=== PATIENT | female | born 1965 | race Caucasian/White ===

== ENCOUNTER 2019-06-09 14:31 | Inpatient (IN) | payer MEDICARE, MEDICAID, SELFPAY ==
--- NOTE | ~2019-06-09 | CT_ITS ---
EXAMINATION: CT abdomen pelvis w con DATE: 06/09/2019 17:11 INDICATION: Lower abdominal pain TECHNIQUE: Computed tomography (CT) of the abdomen and pelvis was performed with 100 mL Omnipaque-350 intravenous contrast. Automated exposure control and iterative reconstruction technique were employe d. The dose-length product was 539.12 mGy-cm. COMPARISON: 07/27/2018 FINDINGS: Lung bases are clear. Heart size is normal. No pericardial or pleural effusion. Liver, gallbladder, s pleen, pancreas and bilateral adrenal glands are normal. Mild right and moderate left hydroureteronep hrosis with delayed left nephrogram. No evident obstructing stones at the transition points along the distal bilateral ureters which currently region of scarring in the pelvis likely related to prior hy sterectomy and reported radiation treatment. 5.2 x 1.8 x 5.1 cm gas and fluid collection within the v aginal vault and cervical cuff. There is subtle region of decreased attenuation along the anterior ma rgin of the vaginal cuff abutting the bladder and could not exclude a vaginovesical fistula. There is mild stranding in the pelvis but no intraperitoneal fluid collections. There are few scattered colon ic diverticula without adjacent inflammatory change to suggest diverticulitis. Small bowel and append ix are normal. There are a few phleboliths in the pelvis. Couple small heterotopic ossicles in the in traperitoneal fat near the dome of the bladder. No pathologically enlarged abdominal or pelvic lympha denopathy. Severe lumbar facet osteoarthritis. Moderate thoracic spondylosis. IMPRESSION: 1. 5.2 x 1.8 x 5.1 cm gas and fluid collection within the vaginal vault and cervical cuff post prior hysterectomy and reported radiation treatment. Small region of decreased attenuation along the anteri or wall of the cervical cuff which raises some concern for vesicovaginal fistula although no discrete defect is identified in the adjacent bladder wall and there is no gas within the bladder to more spe cifically suggest this. Correlate with urinalysis. 2. Bilateral hydronephrosis, moderate with delayed nephrogram on the left and mild on the right with transition points along the ureters in the pelvis which may be related to postoperative/radiation lorin atment strictures or potentially recurrent malignancy given the reported history of prior endometrial cancer. No evident obstructing urolithiasis. Recommend urologic consultation. Reviewed, dictated and finalized at location A. [employer] IMPRESSION: 1. 5.2 x 1.8 x 5.1 cm gas and fluid collection within the vaginal vault and cer vical cuff post prior hysterectomy and reported radiation treatment. Small keon on of decreased attenuation along the anterior wall of the cervical cuff which raises some concern for vesicovaginal fistula although no discrete defect is id entified in the adjacent bladder wall and there is no gas within the bladder to more specifically suggest this. Correlate with urinalysis. 2. Bilateral hydronephrosis, moderate with delayed nephrogram on the left and m ild on the right with transition points along the ureters in the pelvis which m ay be related to postoperative/radiation treatment strictures or potentially re current malignancy given the reported history of prior endometrial cancer. No e vident obstructing urolithiasis. Recommend urologic consultation.
--- NOTE | ~2019-06-09 | XR_ITS ---
EXAMINATION: XR fluoroscopy no charge EXAM DATE: 06/11/2019 13:15 INDICATION: Unsuccessful urethral access. TECHNIQUE: Fluoroscopy used during XR fluoroscopy no charge performed by Dr. Zoltan Borrego MD. The DAP for this procedure was 0.15 mGym2. FINDINGS: Director Of Land Acquisition image of pelvis is unremarkable. Correlate with procedure note. IMPRESSION: Fluoroscopy used during XR fluoroscopy no charge. Reviewed, dictated and finalized at location A. [employer] EXP[employer]
--- NOTE | ~2019-06-09 | MR_ITS ---
EXAMINATION: MR pelvis wo con DATE: 06/10/2019 10:46 INDICATION: Vesicovaginal fistula. Endometrial cancer status post radiation therapy. Supracervical hy sterectomy prior to the cancer diagnosis. TECHNIQUE: Magnetic resonance imaging (MRI) of the pelvis was performed without intravenous contrast. Sequences included coronal and axial T2-weighted FS FSE, axial T1-weighted FS FSE, axial LAVA, coron al FS FIESTA, coronal LAVA-flex, axial T2-weighted FSE, axial dual-echo T1-weighted FSPGR, axial FS F IESTA, axial DWI, and small [id number] sagittal, coronal, and axial T2-weighted FSE. COMPARISON: CT abdomen and pelvis 06/09/2019,07/27/18 FINDINGS: There is bilateral hydronephrosis and hydroureter. The bladder is distended. There are no dilated loo ps of bowel. There is wall thickening of the rectum. There is thickening of the cárdenas of the cervix a nd vagina. There is fluid and gas in the vagina. There is fat stranding around the vagina and rectum. There are no pathologically enlarged lymph nodes. There is no free intraperitoneal fluid. IMPRESSION: 1. Wall thickening of the cervix and vagina and rectum with surrounding fat stranding, consistent wit h changes of radiation therapy. Residual or recurrent endometrial adenocarcinoma cannot be excluded. 2. Bilateral hydronephrosis and hydroureter, new from 07/27/18, likely secondary to distal ureteral st rictures from radiation therapy. 3. No vesicovaginal fistula. Reviewed, dictated and finalized at location A. GENCY ROOM TECH IMPRESSION: 1. Wall thickening of the cervix and vagina and rectum with surrounding fat str anding, consistent with changes of radiation therapy. Residual or recurrent end ometrial adenocarcinoma cannot be excluded. 2. Bilateral hydronephrosis and hydroureter, new from 07/27/18, likely secondary to distal ureteral strictures from radiation therapy. 3. No vesicovaginal fistula.
[2019-06-09 14:39] VITALS: BP 161/92; PULSE 113; PULSE 121; TEMP 37.1; O2SAT 98
--- NOTE | 2019-06-09 14:46 | ED.GENADULT ---
HPI - General Adult General Chief complaint: Unspecified <Johanny Saenz MD - Last Filed: 06/10/19 09:05> Stated complaint: high blood sugar/abd pain <Johanny Saenz MD - Last Filed: 06/10/19 09:05> Time Seen by Provider: 06/09/19 14:43 <Johanny Saenz MD - Last Filed: 06/10/19 09:05> Source: patient <Johanny Saenz MD - Last Filed: 06/10/19 09:05> Mode of arrival: EMS <Johanny Saenz MD - Last Filed: 06/10/19 09:05> Limitations: no limitations <Johanny Saenz MD - Last Filed: 06/10/19 09:05> History of Present Illness HPI narrative: A 53 y/o female pt presents to the ED, via EMS, from Dr. Moya's office, with c/o chronic,unmanageable, lower, ABD pain x 1 year, that is worsening. Pt states that she was dx with endometrial CA in 2014, that was treated with radiation, and now has chronic pain in her lower ABD. Pt notes that she has lost control of her bladder and bowels and has BLE edema. She reports having nausea but denies vomiting and diarrhea. Pt has a PSHx of a hysterectomy. <Johanny Saenz MD - Last Filed: 06/10/19 09:05> MD complaint: ABD Pain <Johanny Saenz MD - Last Filed: 06/10/19 09:05> Onset (ago): year(s) (1) <Johanny Saenz MD - Last Filed: 06/10/19 09:05> Location: abdomen (lower) <Johanny Saenz MD - Last Filed: 06/10/19 09:05> Relieving factors: none <Johanny Saenz MD - Last Filed: 06/10/19 09:05> Associated symptoms: other (Nausea, incontinence of bladder and bowel) <Johanny Saenz MD - Last Filed: 06/10/19 09:05> Related Data Home medications: Home Medications Medication Instructions Recorded Confirmed allopurinol 300 mg PO DAILY 06/09/19 06/10/19 levothyroxine 175 mcg PO DAILY 06/09/19 06/10/19 metformin 500 mg PO DAILY 06/09/19 06/10/19 metoprolol succinate 1 mg PO DAILY 06/09/19 06/10/19 omeprazole 40 mg PO DAILY 06/09/19 06/10/19 triamterene-hydrochlorothiazid 1 tablet PO DAILY 06/09/19 06/10/19 besifloxacin [Besivance] 1 drp LEFTEYE BID 06/10/19 06/10/19 bromfenac [Prolensa] 1 drp LEFTEYE DAILY 06/10/19 06/10/19 loteprednol etabonate [Lotemax SM] 1 drp LEFTEYE TID 06/10/19 06/10/19 prednisolone acetate 1 drp LEFTEYE TID 06/10/19 06/10/19 simvastatin 20 mg BYMOUTH DAILY 06/10/19 06/10/19 <Johanny Saenz MD - Last Filed: 06/10/19 09:05> Allergies/adverse reactions: Allergies Allergy/AdvReac Type Severity Reaction Status Date / Time No Known Allergies Allergy Verified 06/09/19 17:46 <Johanny Saenz MD - Last Filed: 06/10/19 09:05> Review of Systems Review of Systems: All systems reviewed & are unremarkable except as noted in HPI and below <Johanny Saenz MD - Last Filed: 06/10/19 09:05> Gastrointestinal: Gastrointestinal: Reports abdominal pain (lower), Reports fecal incontinence, Denies diarrhea, Reports nausea and Denies vomiting <Johanny Saenz MD - Last Filed: 06/10/19 09:05> Genitourinary: Genitourinary: Reports urinary incontinence <Johanny Saenz MD - Last Filed: 06/10/19 09:05> Musculoskeletal: Musculoskeletal: Reports other (BLE edema) <Johanny Saenz MD - Last Filed: 06/10/19 09:05> [facility] Past Medical History Medical History: Medical History (Updated 06/09/19 @ 19:19 by Shahram Hussein MD) Cerebral palsy Diabetes mellitus Endometrial cancer Hyperlipidemia Hypertension <Johnany Saenz MD - Last Filed: 06/10/19 09:05> Surgical History Surgical History: Surgical History (Updated 06/09/19 @ 15:18 by FRANCINE Hoffmann) History of hysterectomy <Johanny Saenz MD - Last Filed: 06/10/19 09:05> Social History Social History: Social History (Updated 06/09/19 @ 15:22 by FRANCINE Hoffmann) Smoking status: Never smoker Alcohol intake: never Substance use: never Living arrangements: with family Gender identity (if verbalized by the
[2019-06-09 15:14] LABS: Alveolar/Arterial O2 Gradient 38.6 mmHg; Base Excess ABG -0.8 mEq/l (+/-2.0); Carboxyhemoglobin 0.3 % THb (0-2.0); Fractional Inspired Oxygen 21 %; HCO3 ABG 19.3 mEq/l (22.0-26.0); Methemoglobin ABG 0.2 %THb (0-1.5); Oxygen Content ABG 16.9 %vol (16.0-22.0); Oxygen Saturation ABG 97.8 % (95.0-100.0); Oxyhemoglobin 96.3 % THb (90.0-100.0); PO2 ABG 85.7 mmHg (80.0-100.0); PO2 FiO2 Ratio Arterial Blood 4.08 %; Reduced Hemoglobin 3.2 %THb (0-5.0); Total Hemoglobin 12.4 g/dL (12.0-18.0); pH ABG 7.578 (7.350-7.450)
[2019-06-09 15:15] LABS: Device ROOM AIR; PCO2 ABG 21.2 mmHg (35.0-45.0); Site Drawn RIGHT BRACHIAL
[2019-06-09 16:14] LABS: Basophils Absolute Auto 0.1 K/mm3 (0.0-0.1); Basophils Percent Auto 0.9 % (0.2-1.2); Eosinophils Percent Auto 0.3 % (0-4.4); Hemoglobin 11.6 g/dL (12.0-15.0); Immature Granulocyte Absolute 0.06 K/mm3 (0.00-0.031); Immature Granulocyte Percent A 0.9 % (0-0.5); Lymphocytes Absolute Auto 0.69 K/mm3 (0.9-3.2); Lymphocytes Percent Auto 10.1 % (18.3-44.2); Mean Corpuscular HGB Conc 34.1 g/dl (32-36); Mean Corpuscular Hemoglobin 27.4 pg (26-34); Mean Corpuscular Volume 80.2 fl (80-100); Mean Platelet Volume 10.4 fl (7.4-10.4); Monocytes Absolute Auto 0.4 K/mm3 (0.1-0.6); Neutrophils Absolute Auto 5.6 K/mm3 (1.3-6.7); Neutrophils Percent Auto 81.8 % (45.5-73.1); Platelet Count Result 331 k/mm3 (150-375); Red Blood Count 4.24 M/mm3 (4.2-5.4); Red Cell Distribution Width 14.2 % (11.5-14.5); White Blood Count 6.9 K/mm3 (4.5-10.0)
[2019-06-09 16:26] LABS: Lactic Acid Reflex 1.4 mmol/L (0.7-2.1); Phosphorus 2.5 mg/dL (2.5-4.5)
[2019-06-09 16:27] LABS: INR 1.1; Prothrombin Time 13.4 Seconds (11.1-14.7)
[2019-06-09 16:28] LABS: Partial Thromboplastin Time 22.6 SECONDS (22.3-36.8)
[2019-06-09 16:32] LABS: Alanine Aminotransferase 14 U/L (4-35); Albumin Level 3.7 g/dL (3.5-5.1); Alkaline Phosphatase 149 U/L (38-126); Aspartate Amino Transferase 17 U/L (14-36); Bilirubin,Total 0.7 mg/dL (0.2-1.3); Blood Urea Nitrogen 17 mg/dL (7-17); Calcium 9.4 mg/dL (8.4-10.2); Carbon Dioxide 21 mmol/L (22-30); Chloride 90 mmol/L (98-107); Estimated CRCL calculation 36 ml/min; Estimated Glomerular Filt Rate 33; Glucose 620 mg/dL (65-105); Lipase 100 U/L (23-300); Magnesium 1.7 mg/dL (1.6-2.3); Potassium 3.1 mmol/L (3.4-5.0); Sodium 129 mmol/L (137-145)
[2019-06-09] MEDS: SODIUM CHLORIDE 0.9% IV 1,000 ML 999 ML IV CONT (17:23)
[2019-06-09 17:24] VITALS: BP 166/102; PULSE 103; O2SAT 100
--- NOTE | 2019-06-09 17:41 | PC.NURSE ---
Tried to cath pt but Burciaga would not advance, had another RN try and she had same results. Spoke with Dr. Saenz and she wanted a 8 romansh cath tried on pt. Was able to get a small amount of bloody urine. but lab rejected
[2019-06-09 18:02] LABS: Glucose Point of Care > 500 (65-105)
[2019-06-09 18:16] LABS: Free T4 Free Thyroxine Reflex 1.84 ng/dL (0.78-2.19)
[2019-06-09 18:36] VITALS: BP 132/45; PULSE 78; RESP 16; O2SAT 100
[2019-06-09] MEDS: ONDANSETRON INJ 4 MG/2 ML VIAL IV PUSH (18:43)
[2019-06-09] MEDS: MORPHINE SULFATE 4 MG/ML INJ IV PUSH (18:43)
[2019-06-09 18:55] LABS: Total Triiodothyronine (T3) 1.35 NG/ML (0.97-1.69)
[2019-06-09 20:21] VITALS: BP 143/71; PULSE 97; RESP 20; TEMP 36.7; O2SAT 100
[2019-06-09 20:40] VITALS: BP 162/102; PULSE 97; O2SAT 98
[2019-06-09] MEDS: LACTATED RINGERS 1,000 ML 125 ML IV CONT (20:54)
[2019-06-09 22:07] LABS: Glucose Point of Care 490 (65-105)
[2019-06-09] MEDS: KETOROLAC 15 MG/ML VIAL (*BKC) IV PUSH (23:00)
[2019-06-09] MEDS: INSULIN ASPART (*BKC) 100 UNITS/ML 6 UNITS SUB-Q (23:01)
[2019-06-10] VITALS: BP 127/77; PULSE 87; RESP 16; TEMP 36.2; O2SAT 98
[2019-06-10 04:00] VITALS: BP 141/72; PULSE 85; RESP 16; TEMP 36.3; O2SAT 100
[2019-06-10] MEDS: LACTATED RINGERS 1,000 ML 125 ML IV CONT (04:53)
[2019-06-10 05:29] LABS: Glucose Point of Care 342 (65-105)
[2019-06-10 06:13] LABS: Basophils Absolute Auto 0.1 K/mm3 (0.0-0.1); Eosinophils Absolute Auto 0.2 K/mm3 (0-0.3); Eosinophils Percent Auto 2.7 % (0-4.4); Hematocrit 29.2 % (37.0-47.0); Hemoglobin 9.8 g/dL (12.0-15.0); Immature Granulocyte Absolute 0.05 K/mm3 (0.00-0.031); Immature Granulocyte Percent A 0.8 % (0-0.5); Lymphocytes Absolute Auto 0.98 K/mm3 (0.9-3.2); Lymphocytes Percent Auto 16.4 % (18.3-44.2); Mean Corpuscular HGB Conc 33.6 g/dl (32-36); Mean Corpuscular Hemoglobin 27.6 pg (26-34); Mean Corpuscular Volume 82.3 fl (80-100); Mean Platelet Volume 10.5 fl (7.4-10.4); Monocytes Absolute Auto 0.5 K/mm3 (0.1-0.6); Monocytes Percent Auto 8.2 % (2.6-8.5); Neutrophils Absolute Auto 4.2 K/mm3 (1.3-6.7); Neutrophils Percent Auto 70.9 % (45.5-73.1); Platelet Count Result 293 k/mm3 (150-375); Red Blood Count 3.55 M/mm3 (4.2-5.4); Red Cell Distribution Width 14.6 % (11.5-14.5)
[2019-06-10 06:23] LABS: Alanine Aminotransferase 11 U/L (4-35); Alkaline Phosphatase 110 U/L (38-126); Aspartate Amino Transferase 15 U/L (14-36); Bilirubin,Total 0.4 mg/dL (0.2-1.3); Blood Urea Nitrogen 15 mg/dL (7-17); Calcium 8.4 mg/dL (8.4-10.2); Carbon Dioxide 26 mmol/L (22-30); Chloride 95 mmol/L (98-107); Estimated CRCL calculation 45 ml/min; Estimated Glomerular Filt Rate 33; Glucose 334 mg/dL (65-105); Potassium 2.9 mmol/L (3.4-5.0); Sodium 131 mmol/L (137-145)
[2019-06-10 08:13] LABS: Glucose Point of Care 365 (65-105)
[2019-06-10] MEDS: POTASSIUM CHLORIDE 20 MEQ PACKET (FOR LIQUID) 40 MEQ PO ×2 (08:43→17:15)
[2019-06-10 08:44] VITALS: RESP 20; O2SAT 100
[2019-06-10] MEDS: INSULIN ASPART (*BKC) 100 UNITS/ML SUB-Q ×2 (08:44→17:17)
[2019-06-10 12:12] LABS: Glucose Point of Care 407 (65-105)
--- NOTE | 2019-06-10 12:18 | PM.IMHP ---
H&P: HPI History of Present Illness Chief complaint: CHRONIC LOWER ABDOMINAL PAIN,VESICOVAGINAL FISTULA Narrative: Stephanie De La Garza is a 53 year old female With a history of endometrial cancer who was admitted to the emergency department with 1 year of lower abdominal pain. she had lost control of her bowels and bladder. she is status post supracervical hysterectomy. She received radiation therapy in the past. There is a question of a vesicle vaginal fistula on admission. MRI today however shows no vesicle vaginal fistula. On MRI her ureters are distended secondary to suspected scarring from previous radiation. Review of Systems Review of Systems: All systems reviewed & are unremarkable except as noted in HPI and below PMFSH Past Medical History Medical History Cerebral palsy Diabetes mellitus Endometrial cancer Hyperlipidemia Hypertension Surgical History Surgical History History of hysterectomy Social History Social History Smoking status: Never smoker Alcohol intake: never Substance use: never Living arrangements: with family Gender identity (if verbalized by the patient): Female Spiritual care concerns: No Agree to blood products: No Meds Home Medications and Allergies Home Medications Medication Instructions Recorded Confirmed Type allopurinol 300 mg PO DAILY 06/09/19 06/10/19 History levothyroxine 175 mcg PO DAILY 06/09/19 06/10/19 History metformin 500 mg PO DAILY 06/09/19 06/10/19 History metoprolol succinate 1 mg PO DAILY 06/09/19 06/10/19 History omeprazole 40 mg PO DAILY 06/09/19 06/10/19 History triamterene-hydrochlorothiazid 1 tablet PO DAILY 06/09/19 06/10/19 History besifloxacin [Besivance] 1 drp LEFTEYE BID 06/10/19 06/10/19 History bromfenac [Prolensa] 1 drp LEFTEYE DAILY 06/10/19 06/10/19 History loteprednol etabonate [Lotemax SM] 1 drp LEFTEYE TID 06/10/19 06/10/19 History prednisolone acetate 1 drp LEFTEYE TID 06/10/19 06/10/19 History simvastatin 20 mg BYMOUTH DAILY 06/10/19 06/10/19 History Allergies Allergy/AdvReac Type Severity Reaction Status Date / Time No Known Allergies Allergy Verified 06/09/19 17:46 Vital Signs Vital Signs - 24 hr 06/09/19 14:39 06/09/19 17:24 06/09/19 18:36 Temperature 98.8 F Pulse Rate 113 H 103 H 78 Respiratory Rate 16 Blood Pressure 161/92 H 166/102 H 132/45 L Pulse Oximetry 98 100 100 06/09/19 20:21 06/09/19 20:40 06/10/19 00:00 Temperature 98.1 F 97.2 F L Pulse Rate 97 97 87 Respiratory Rate 20 16 Blood Pressure 143/71 H 162/102 H 127/77 Pulse Oximetry 100 98 98 06/10/19 04:00 Temperature 97.4 F L Pulse Rate 85 Respiratory Rate 16 Blood Pressure 141/72 H Pulse Oximetry 100 Exam Const: General: no acute distress Eyes: General: appearance normal, both eyes and all related structures Neck: Neck: supple and no JVD Thyroid: thyroid normal Resp: Effort & Inspection: normal respiratory effort Auscultation: clear to auscultation bilaterally Cardio: Rate: regular rate Rhythm: regular rhythm GI: Inspection: non-distended GI Palp: Yes Soft to palpation, No Tenderness to palpation present (GI) and No Guarding due to palpation present (GI) Auscultation: normal bowel sounds Skin: General skin exam: no rashes or lesions noted Extrem: General: normal to inspection and no edema Psych: Mental Status: mental status grossly normal Affect: normal affect H&P: Results Labs Labs: Short CBC 06/09/19 06/10/19 Range/Units 16:06 04:53 WBC 6.9 6.0 (4.5-10.0) K/mm3 Hgb 11.6 L 9.8 L (12.0-15.0) g/dL Hct 34.0 L 29.2 L (37.0-47.0) % Plt Count 331 293 (150-375) k/mm3 [facility] 06/09/19 06/10/19 16:06 04:53 Sodium 129 L 131 L Potassium 3.1 L 2.9 L Chloride 90 L 95 L Carbon Dioxide 21 L 26 BUN 17 15 Creatinine 1
[2019-06-10] MEDS: LIDOCAINE HCL 2% GEL UROJET 10 ML PKG MUCOUS MEM (13:14)
[2019-06-10 13:18] LABS: Glucose Point of Care 429 (65-105)
[2019-06-10] MEDS: INSULIN ASPART (*BKC) 100 UNITS/ML 8 UNITS SUB-Q (13:18)
--- NOTE | 2019-06-10 13:39 | PC.NURSE ---
1330 Report called to Carin CASIANO in Preop.
--- NOTE | 2019-06-10 13:40 | PC.NURSE ---
1800 To OR via stretcher.
[2019-06-10 13:55] VITALS: BP 149/56; PULSE 104; RESP 20; TEMP 36.3; O2SAT 100
[2019-06-10] MEDS: LACTATED RINGERS 1,000 ML 30 ML IV CONT (14:00)
--- NOTE | 2019-06-10 14:19 | WPDANESEPPF ---
Anes - Initial Pre Proc Eval Procedure: Operation Date: 06/10/19 16:00 Proposed Procedures p CYSTOSCOPY,BILATERAL RETROGRADE PYELOGRAMS,POSSIBLE BILATERAL STENT PLACEMENT,JIMENEZ CATHETER INSERTION - Zoltan Borrego MD Date/Time: 06/10/19 14:19 Pre Op Diagnosis: CHRONIC LOWER ABDOMINAL PAIN,VESICOVAGINAL FISTULA Patient Data Age: 53 Gender: F Height: 24.59 m Weight: 79.9 kg Last Vital Signs Temp 36.3 C L 06/10/19 13:55 Pulse 104 H 06/10/19 13:55 Resp 20 06/10/19 13:55 BP 149/56 H 06/10/19 13:55 Pulse Ox 100 06/10/19 13:55 Allergies Allergy/AdvReac Type Severity Reaction Status Date / Time No Known Allergies Allergy Verified 06/09/19 17:46 Home Medications Medication Instructions Recorded Confirmed Type allopurinol 300 mg PO DAILY 06/09/19 06/10/19 History levothyroxine 175 mcg PO DAILY 06/09/19 06/10/19 History metformin 500 mg PO DAILY 06/09/19 06/10/19 History metoprolol succinate 1 mg PO DAILY 06/09/19 06/10/19 History omeprazole 40 mg PO DAILY 06/09/19 06/10/19 History triamterene-hydrochlorothiazid 1 tablet PO DAILY 06/09/19 06/10/19 History besifloxacin [Besivance] 1 drp LEFTEYE BID 06/10/19 06/10/19 History bromfenac [Prolensa] 1 drp LEFTEYE DAILY 06/10/19 06/10/19 History loteprednol etabonate [Lotemax SM] 1 drp LEFTEYE TID 06/10/19 06/10/19 History prednisolone acetate 1 drp LEFTEYE TID 06/10/19 06/10/19 History simvastatin 20 mg BYMOUTH DAILY 06/10/19 06/10/19 History Laboratory Tests 06/09/19 06/09/19 06/09/19 15:07 15:22 15:55 WBC RBC Hgb Hct MCV MCH MCHC RDW Plt Count MPV Immature Gran % (Auto) Neut % (Auto) Lymph % (Auto) [place] % (Auto) Eos % (Auto) Baso % (Auto) Lymph # (Auto) [place] # (Auto) Eos # (Auto) Baso # (Auto) Abs Immat Gran (auto) Absolute Neuts (auto) Absolute Nucleated RBC Nucleated RBC % PT INR APTT Puncture Site Right brachial ABG pH 7.578 H* (7.350-7.450) ABG pCO2 21.2 mmHg L* mmHg (35.0-45.0) ABG pO2 85.7 mmHg mmHg (80.0-100.0) ABG PO2/FiO2 Ratio 4.08 % % ABG HCO3 19.3 mEq/l L mEq/l (22.0-26.0) ABG O2 Saturation 97.8 % % (95.0-100.0) ABG O2 Content 16.9 %vol %vol (16.0-22.0) ABG Base Excess -0.8 mEq/l mEq/l (+/-2.0) A-a Gradient 38.6 mmHg mmHg Oxyhemoglobin 96.3 % THb % THb (90.0-100.0) Carboxyhemoglobin 0.3 % THb % THb (0-2.0) Methemoglobin 0.2 %THb %THb (0-1.5) Reduced Hemoglobin 3.2 %THb %THb (0-5.0) Total Hemoglobin 12.4 g/dL g/dL (12.0-18.0) O2 Delivery Device Room air O2 Liters/Min Not Reportable FiO2 21 % % Sodium Potassium Chloride Carbon Dioxide BUN Creatinine Estim Creat Clear Calc Estimated GFR Glucose POC Capillary Glucose > 500 mg/dl mg/dl (65-105) Lactic Acid Calcium Phosphorus Magnesium Total Bilirubin AST ALT Alkaline Phosphatase Total Protein Albumin Lipase TSH (Reflex) Free T4 Total T3 Urine Color Pending Urine Appearance Pending Urine pH Pending Ur Specific Benedict Pending Urine Protein Pending Urine Glucose (UA) Pending Urine Ketones Pending Ur Blood (Man) Pending Urine Nitrate Pending Urin
--- NOTE | 2019-06-10 14:24 | WPDURCON ---
Assessment and Plan Assessment and plan (1) Hydronephrosis: Code(s): N13.30 - Unspecified hydronephrosis Status: Acute Assessment and Plan: Etiology of hydronephrosis on clear as to whether this is due to urinary retention versus bilateral ureteral stricture disease from her prior pelvic radiation we will proceed with cystoscopy bilateral retrograde pyelograms possibly bilateral stents if needed (2) Urinary retention with incomplete bladder emptying: Code(s): R33.9 - Retention of urine, unspecified Status: Acute Assessment and Plan: Random residual is 470 cc. On clears to what her baseline is. She states that she is incontinent of urine but is unclear whether she makes an effort to void in the bathroom on her own. There was a question of whether she had a vesicle vaginal fistula. MRI stated that she did not. Will evaluate with cystoscopy in addition (3) Incontinence: Code(s): R32 - Unspecified urinary incontinence Status: Acute Assessment and Plan: Again etiology is unclear whether this is overflow or basically inability to make it to the restroom in time. We will also see if this is secondary to a vesicovaginal fistula Urology Consult Note HPI Date Seen: 06/10/19 Requesting Physician: Philip Bustillos MD Primary Care Provider: Iza Moya MD Consult Narrative Narrative: Stephanie De La Garza is a 53 year old female with cerebral palsy and a complicated history of endometrial carcinoma with a supracervical hysterectomy. She underwent adjuvant radiation therapy. She has had a long history of abdominal vaginal discomfort but had never really pursue treatment. She has also had urinary incontinence and there was some question of a vesicle vaginal fistula. She underwent both a CT scan and MRI which ruled out a fistula. She does have some sort of a fluid collection in her pelvic area. Of note is however that she had bilateral hydronephrosis as well as a mildly distended bladder. Postvoid residual or random residual was [address] attempted to [address] a Burciaga at the bedside but she could not tolerate that placement. She will be taken to the operative suite for cystoscopy bilateral retrogrades bilateral stents possibly with Burciaga placement the CT scan was not clear whether it was hydronephrosis secondary to retention versus bilateral ureteral stricture disease PMFSH Past Medical History Medical History Cerebral palsy Diabetes mellitus Endometrial cancer Hyperlipidemia Hypertension Surgical History Surgical History History of hysterectomy Social History Social History Smoking status: Never smoker Alcohol intake: never Substance use: never Living arrangements: with family Gender identity (if verbalized by the patient): Female Spiritual care concerns: No Agree to blood products: No Meds Home Medications and Allergies Home Medications Medication Instructions Recorded Confirmed Type allopurinol 300 mg PO DAILY 06/09/19 06/10/19 History levothyroxine 175 mcg PO DAILY 06/09/19 06/10/19 History metformin 500 mg PO DAILY 06/09/19 06/10/19 History metoprolol succinate 1 mg PO DAILY 06/09/19 06/10/19 History omeprazole 40 mg PO DAILY 06/09/19 06/10/19 History triamterene-hydrochlorothiazid 1 tablet PO DAILY 06/09/19 06/10/19 History besifloxacin [Besivance] 1 drp LEFTEYE BID 06/10/19 06/10/19 History bromfenac [Prolensa] 1 drp LEFTEYE DAILY 06/10/19 06/10/19 History loteprednol etabonate [Lotemax SM] 1 drp LEFTEYE TID 06/10/19 06/10/19 History prednisolone acetate 1 drp LEFTEYE TID 06/10/19 06/10/19 History simvastatin 20 mg BYMOUTH DAILY 06/10/19 06/10/19 History Allergies Allergy/AdvReac Type Severity Reaction Status Date / Time No Known Allergies Allergy Verified
[2019-06-10 16:00] VITALS: BP 137/72; PULSE 96; RESP 16; TEMP 36.2; O2SAT 100
[2019-06-10 16:44] LABS: Glucose Point of Care 322 (65-105)
--- NOTE | 2019-06-10 16:59 | PC.NURSE ---
1600 Returned from OR via stretcher. Unable to do surgery based on last intake at 1100 on 06/10/2019.
[2019-06-10] MEDS: SODIUM CHLORIDE 0.9% IV 1,000 ML 75 ML IV CONT (18:13)
[2019-06-10 20:09] VITALS: BMI 31.1
[2019-06-10 21:36] VITALS: BP 145/75; PULSE 89; RESP 16; TEMP 36.2; O2SAT 100
[2019-06-10 21:36] LABS: Glucose Point of Care 388 (65-105)
[2019-06-11] VITALS (8 sets, daily range): BP systolic 116–157; BP diastolic 57–86; PULSE 68–99; RESP 13–19; TEMP 36.1–37.2; O2SAT 98–100
[2019-06-11] MEDS: SODIUM CHLORIDE 0.9% IV 1,000 ML 75 ML IV CONT (06:37)
--- NOTE | 2019-06-11 07:05 | WPDUROPN2 ---
Progress Note: A&P Assessment and Plan (1) Hydronephrosis: Code(s): N13.30 - Unspecified hydronephrosis Status: Acute Assessment and Plan: Awake creatinine level today. Plan for cystoscopy bilateral retrogrades with possible bilateral stent placement later today (2) Urinary retention with incomplete bladder emptying: Code(s): R33.9 - Retention of urine, unspecified Status: Acute Assessment and Plan: Will recheck bladder scan to see what her random residual is this morning (3) Incontinence: Code(s): R32 - Unspecified urinary incontinence Status: Acute Assessment and Plan: Etiology is still unclear whether this is overflow incontinence or has a psychologic component Subjective Subjective Date/Time Seen: 06/11/19 07:05 No new complaints. Plan for operative intervention today with cystoscopy bilateral retrograde possible stents and Burciaga placement Review of Systems Review of Systems: All systems reviewed & are unremarkable except as noted in HPI and below Exam Const: General: uncomfortable Eyes: EOM: EOMs intact bilaterally Resp: Effort & Inspection: normal respiratory effort Objective Data Vital Signs Vital Signs: Vital Signs - 24 hr 06/10/19 08:44 06/10/19 13:55 06/10/19 16:00 Temperature 36.3 C L 36.2 C L Pulse Rate 104 H 96 Respiratory Rate 20 20 16 Blood Pressure 149/56 H 137/72 Pulse Oximetry 100 100 100 06/10/19 21:36 06/11/19 06:19 Temperature 36.2 C L 36.1 C L Pulse Rate 89 95 Respiratory Rate 16 18 Blood Pressure 145/75 H 139/65 Pulse Oximetry 100 99 Intake/Output Intake/Output: Intake & Output 06/08/19 06/09/19 06/10/19 06/11/19 23:59 23:59 23:59 23:59 Intake Total 1050 3430 1200 Output Total 360 Balance 1050 3070 1200 Meds/Results Medications: Active Medications Generic Name Dose Route Start Last Admin Trade Name Freq PRN Reason Stop Dose Admin Acetaminophen 500 mg 06/09/19 22:21 Tylenol Tablet PO Q4H PRN Mild Pain (1-3) or Fever Dextrose 12.5 gm 06/09/19 22:24 Dextrose 50% Syringe IV PUSH PRN PRN Hypoglycemia Protocol Fentanyl Citrate 25 mcg 06/10/19 14:57 Sublimaze IV PUSH Q2M PRN Pain Glucagon 1 mg 06/09/19 22:24 Glucagon For Inj IM PRN PRN Hypoglycemia Protocol Glucose 15 gm 06/09/19 22:24 Glutose 15 PO PRN PRN Hypoglycemia Protocol Hydromorphone HCl 0.5 mg 06/09/19 18:29 Dilaudid Inj IV PUSH Q4H PRN Pain Rated 7-10 Hydromorphone HCl 0.25 mg 06/10/19 14:57 Dilaudid Inj IV PUSH Q5M PRN Pain Dextrose 1,000 mls @ 100 mls/hr 06/09/19 22:24 Dextrose 5% 1,000 Ml IVPB PRN PRN Hypoglycemia Protocol Sodium Chloride 1,000 mls @ 75 mls/hr 06/10/19 17:45 06/11/19 06:37 Normal Saline Iv IV CONT 75 mls/hr .[id number] BOBO Administration Insulin Aspart 4 - 8 units 06/10/19 12:15 06/10/19 17:17 Novolog SUB-Q 6 units TIDWM BOBO Administration Protocol Ketorolac Tromethamine 15 mg 06/09/19 22:21 06/09/19 23:00 Toradol Inj IV PUSH 15 mg Q6H PRN Administration Pain Rated 4-6 Ondansetron HCl 4 mg 06/09/19 18:29 Zofran Inj IV PUSH Q4H PRN Nausea Ondansetron HCl 4 mg 06/10/19 14:57 Zofran Inj IV PUSH ONCE PRN Nausea Oxycodone HCl 2.5 mg 06/10/19 14:57 Roxicodone Ir Tablet PO ONCE PRN Pain Potassium Chloride 40 meq 06/10/19 09:00 06/10/19 17:15 Kcl Powder (For Liquid) PO 40 meq BID BOBO Administration Radiology Results: ITS Impressions Abdomen/Pelvis CT 06/09/19 17:13 IMPRESSION: 1. 5.2 x 1.8 x 5.1 cm gas and fluid collection within the vaginal vault and cervical cuff post prior hysterectomy and reported radiation treatment. Small region of decreased attenuation along the anterior wall of the cervical cuff which raises some concern for vesicovaginal fistul
[2019-06-11 07:40] LABS: Blood Urea Nitrogen 12 mg/dL (7-17); Calcium 8.6 mg/dL (8.4-10.2); Carbon Dioxide 22 mmol/L (22-30); Chloride 99 mmol/L (98-107); Estimated CRCL calculation 38 ml/min; Estimated Glomerular Filt Rate 36; Glucose 327 mg/dL (65-105); Potassium 3.9 mmol/L (3.4-5.0); Sodium 131 mmol/L (137-145)
[2019-06-11] MEDS: LACTATED RINGERS 1,000 ML 30 ML IV CONT ×2 (11:50→13:16)
--- NOTE | 2019-06-11 12:24 | WPDANESEFPP ---
Anes - Eval Final PreProcedure Day of Procedure 06/11/19 12:24 Patient weight: obese Heart: regular rate and rhythm Lungs: clear to auscultation Airway: Mallampati scale class II Neurological: unresponsive Last oral intake: >/= 8 hours ASA classification: III Emergent: no Anesthetic plan: proceed Anesthesia type and monitoring: general LMA and standard monitoring Informed Consent: The patient's anesthetic plan and its attendant risks and benefits were discussed with the patient/family/POA. Questions were solicited and answers provided to the satisfaction of the patient/family/POA.
[2019-06-11] MEDS: ceFAZolin 2 GM/D5W 50 ML 2 GM/50 ML BAG IVPB (12:31)
--- NOTE | 2019-06-11 13:08 | P.OP_ITS ---
Procedure Note - Detailed Date of procedure: 06/11/19 Pre-op diagnosis: CHRONIC LOWER ABDOMINAL PAIN,VESICOVAGINAL FISTULA Post-op diagnosis: other (Severely necrotic friable tissue vaginal vault unable to locate meatus for cystoscopy) Procedure performed: Attempted cystoscopy Description of procedure: Patient was taken to the operative suite and correctly identified. Once general anesthesia was obtained she was placed in a modified dorsal lithotomy position. We were unable to fully abduct her legs due to her cerebral palsy. She was prepped and draped usual sterile fashion. At this point time inspection of the vaginal introitus reveals a very stenotic area. There was no urethral meatus noted. We were able to manipulate and 19 [place] scope I a pop it through this stenotic area. All that was visualized at this point time was some necrotic friable tissue. Some of this tissue was then sent for culture as well as pathologic diagnosis. Again it was presumed to be the entire vaginal wall that was necrotic. At this point time the procedure was terminated she was taken recovery room stable condition. Patient has some known bilateral hydroureter possibly secondary to stricture verses retention. Her bladder scan residuals were 400 and 700 cc but those may have been random amounts that she is incontinent of urine. Her renal function actually had improved from 1.6-1.5 this morning. I have discussed this with Dr. Bustillos. If her renal function worsens then I would recommend bilateral percutaneous nephrostomy tubes. Patient most likely would benefit for transfer to her pasting inspector/oncologist who has taking care of her in the past. Anesthesia: GLMA Surgeon: Zoltan Borrego MD Drains: No Packing: No Pathology: yes Complications: No immediate complications Condition: stable Disposition: PACU
[2019-06-11 13:53] LABS: Glucose Point of Care 327 (65-105)
[2019-06-11 14:44] LABS: Glucose Point of Care 339 (65-105)
[2019-06-11] MEDS: INSULIN ASPART (*BKC) 100 UNITS/ML SUB-Q (15:07)
--- NOTE | 2019-06-11 16:38 | PM.DS ---
DS: Diagnosis Admitting Diagnosis Admitting Diagnosis: Unspecified hydronephrosis Discharge Diagnosis (1) Urinary retention with incomplete bladder emptying: Code(s): R33.9 - Retention of urine, unspecified Status: Acute DS: Summary Hospital Course Reason for hospitalization: abdominal pain, urinary retention Hospital Course: 53 yo F who presented with acute onset abdominal pain. She received a CT scan in the ED that showed a possible vesicovaginal fistula and an enlarged bladder secondary to urinary retention. Patient's history is siginificant for supracervical hysterectomy in 2008 and development of endometrioid adenocarcinoma in 2017. patient is s/p pelvic radiation therapy. Patient's history is also significant for cerebral palsy, HTN, hyperlipidemia, DMII. Pelvic MRI was obtained on hospital day 1 which was read as no vesicovaginal fistula. Urology was consulted to evaluate for urinary retention. Patient was taken to the OR on HD #2 for cystoscopy. Cystoscopy was unable to be performed due to stenotic vaginal inroitus and inability to identify the urethral meatus. The vaginal tissue was noted to be necrotic and full of debris. Patient was noted to have involuntary urinary incontinence. Patient wears a diaper and was noted to be spilling urine. Patient was still noted to have urinary retention on bladder scan. Bilateral nephrostomy tubes were considered but patients creatinine levels improved with no intervention. Patient is well know to Dr. Cope with [facility] at [facility]. His team was notified of the patient and her hospital course. Dr. Cope was agreeable to transferring care to him. He desired to see the patient in the outpatient setting [facility]. Patients family and Dr. Cope's office were notified to arrange follow up. Status at Discharge Cognitive/behavioral status at discharge: Cognitive status limited due to cerebral palsy Functional status at discharge: uses cane/walker Time Spent with Patient Time attestation: Total time spent providing and/or coordinating discharge services: Time spent: Less than 30 minutes Exam Const: General: comfortable and no acute distress Limitations: altered mental status (given cerebral palsy) and physical limitations (patient has mobility limitations due to cerebral palsy) Resp: Effort & Inspection: normal respiratory effort Auscultation: clear to auscultation bilaterally Cardio: Rate: regular rate Rhythm: regular rhythm Skin: General skin exam: normal color DS: Data Data Completed and Pending Pending studies at discharge: Pending at discharge 06/11/19 13:06 Surgical [PTH] Routine Labs on day of discharge: Labs from last 24 hours 06/11/19 06/11/19 06/11/19 14:40 13:51 07:23 Sodium 131 L Potassium 3.9 Chloride 99 Carbon Dioxide 22 BUN 12 Creatinine 1.50 H Estim Creat Clear Calc 38 Estimated GFR 36 L Glucose 327 H POC Capillary Glucose 339 H 327 H Calcium 8.6 Urine Color Urine Appearance Urine pH Ur Specific [place] Urine Protein Urine Glucose (UA) Urine Ketones Ur Blood (Man) Urine Nitrate Urine Bilirubin Urine Urobilinogen Leukocyte Esterase Rfl Urine RBC Urine WBC Urine WBC Clumps Ur Squamous Epith Cells Ur Transition Epith Cell Ur Renal Epithelial Cell [place] Biurate Crystals Calcium Carbonate Cryst Calcium Phosphate Cryst Calcium Oxalate Crystal Leucine Crystals Cystine Crystals Uric Acid Crystals Triple Phos Crystals Sulfonamide Crystals Cholesterol Crystals Talc Crystals Tyrosine Crystals Hippuric Acid Crystals Other Crystals Amorphous Sediment Other Sediment Urine Bacteria Cellular Casts Epithelial Casts Fatty Casts Hyaline Casts Granular Casts Waxy Casts RBC Casts WBC Casts Urine Starch Urine Mucus Urine Trichomonas Urine Yeast (Budding) Ur Oval Fat B
[2019-06-11] MEDS: POTASSIUM CHLORIDE 20 MEQ PACKET (FOR LIQUID) 40 MEQ PO (17:11)
[2019-06-11 18:04] LABS: Glucose Point of Care 476 (65-105)
[2019-06-11] MEDS: INSULIN ASPART (*BKC) 100 UNITS/ML 10 UNITS SUB-Q ×2 (18:50→23:17)
--- NOTE | 2019-06-11 19:31 | PC.NURSE ---
When speaking to pt about being discharged later this evening around 1630, question was asked if she was able to get up and transfer okay to get into a vehicle to go home. Pt stated she could not get up on the tiled floor because it is slick. I stated to the pt that we can provide her assistance and put socks on her feet so she would not slide. I also asked if she had help at home to get her into the house. At this time pt stated she does not know if she could make it up her ramp at home if its slippery out. At this time I call her sister Vivian to see if she would be picking her up. Vivian stated she can not find someone to pick the pt up because she is still at work. I expressed the pt concern in regards to the ramp at the house and stated we could do an ambulance if the pt is unable to walk up the ramp that is at her home. Vivian was okay with this option and that was our plan for the pt to go home by ambulance. The sister Vivian then expressed the concern of wanting more help at the house for the pt and wanted information from care coordination in regards to home health. I then stated that it would be more appropriate to have this set up before the pt goes home. Spoke with charge nurse Celine Davis with this request and was told to call ED Care Coordination. Nika From ED Care Coordination stated she would leave a note and pt would be spoken with in the morning. Some time later around [address] Bustillos in regards to the pt concerns about being able to ambulate as well as sister believing pt needs more assistance at home, Dr. Bustillos stated pt can get home health placed and evaluated by pt/ot and can go home tomorrow morning. At this time the sister Vivian is called again with an update that the pt will not go home tonight so home health can be set up and PT/OT can see her. Vivian then states that she can not know that she will be getting sent help to the house because she and the son will refuse. She begins to tell me that she has tried to get her home health before or to go to a rehab and she refuses. This information was not known to me that she had been refusing and when I asked Vivian why she hadn't told me this she stated she was short on time at work to talk. Charge nurse Celine Davis was made aware of all that was going on and stated the pt will just stay over night as planned so care coordination can sort out what the pt will need. At this point Dr. Bustillos was called again about a 476 blood sugar and I was then given the instruction to consult hospitalist to manage high blood sugar.
--- NOTE | 2019-06-11 20:14 | PM.IMCN ---
Assessment and Plan Assessment and plan (1) Diabetes mellitus: Code(s): E11.9 - Type 2 diabetes mellitus without complications Status: Acute Assessment and Plan: We will continue with sliding scale insulin and start her on glyburide. Patient was taken off her metformin due to acute renal failure. extension educator was greatly be appreciated. (2) Endometrial cancer: Code(s): C54.1 - Malignant neoplasm of endometrium Status: Acute Assessment and Plan: Patient had radiation guidry internally. (3) Cerebral palsy: Code(s): G80.9 - Cerebral palsy, unspecified Status: Acute Assessment and Plan: Patient lives home alone and has assistance from her brother but may need home health. (4) GERD without esophagitis: Code(s): K21.9 - Gastro-esophageal reflux disease without esophagitis Status: Chronic HPI Data of Consult Consult date: 06/11/19 Requesting Physician: Philip Bustillos MD Primary Care Provider: Iza Moya MD Consult Narrative Narrative: Stephanie De La Garza is a 53 year old female who has a past medical history of endometrial cancer. The patient was admitted through the emergency room per gynecology on 06/10/2019. The patient was having some abdominal pain and had loss of bowel bladder. She had a post supracervical hysterectomy in the past. She had radiation treatment in the past that has caused some radiation guidry. There was a question about a vesicle vaginal fistula on admission. The patient has been having blood sugars in the 300s and tonight in the 400s. Anion gap is 10. Creatinine 1.5. The patient had been getting sliding scale insulin. Dr. Borrego had seen the patient today due to vesicle vaginal fistula. Postop diagnosis is severely necrotic friable tissue vaginal vault unable to locate meatus for cystoscopy. Patient is incontinent any urine. It was suggested that the patient would benefit to for transfer to gynecology oncology and possible bilateral percutaneous nephrostomy tubes. I was consulted for hyper glycemia. Date of service 06/11/2019 Review of Systems Review of Systems: Narrative: Patient has cerebral palsy. All systems reviewed & are unremarkable except as noted in HPI and below Constitutional: Constitutional: Reports as per HPI and Reports no additional constitutional complaints Eyes: Eyes: Reports as per HPI and Reports no additional eye complaints ENT: Reports system reviewed and no additional complaints, except as documented and Reports Normal hearing present Cardiovascular: Cardiovascular: Reports no additional cardiovascular complaints Respiratory: Respiratory: Reports no additional respiratory complaints and Reports no additional respiratory complaints Gastrointestinal: Gastrointestinal: Reports as per HPI and Reports no additional gastrointestinal complaints Musculoskeletal: Musculoskeletal: Reports no additional musculoskeletal complaints Integumentary/Breasts: Skin/Breast: Reports system reviewed and no additional complaints, except as docu and Reports as per HPI Neurologic: Reports system reviewed and no additional complaints, except as documented, Reports as per HPI and Reports Normal hearing present Psychiatric: Psychiatric: Reports no additional psychiatric complaints and Reports as per HPI Endocrine: Endocrine: Reports no additional endocrine complaints Hematologic/Lymphatic: Hematologic/Lymphatic: Reports no additional hematologic/lymphatic complaints Allergic/Immunologic: Allergic/Immunologic: Reports no additional allergic/immunologic complaints REPLACED BY [facility] Past Medical History Medical History (Updated 06/10/19 @ 17:28 by Kerrie Brandt) Abnormal weight loss Cerebral palsy Diabetes mellitus Diarrhea Endometrial cancer Follows with ONC REFRIGERATION SERVICE TECHNICIAN at [facility] Endometrial cancer Gastroesophageal reflux disease GERD without esophagitis Gout Hyperlipidemia Hyperlipidemia Hypertension Hypertensi
[2019-06-11 22:53] LABS: Glucose Point of Care 456 (65-105)
[2019-06-11] MEDS: INSULIN GLARGINE (*BKC) 100 UNITS/ML 10 UNITS SUB-Q (23:17)
[2019-06-12 04:14] LABS: Glucose Point of Care 251 (65-105)
[2019-06-12 06:59] VITALS: BP 158/85; PULSE 76; RESP 14; TEMP 36.1; O2SAT 100
[2019-06-12 07:26] LABS: Glucose Point of Care 262 (65-105)
[2019-06-12] MEDS: INSULIN ASPART (*BKC) 100 UNITS/ML SUB-Q ×3 (07:48→17:12)
[2019-06-12 08:00] VITALS: PULSE 76; RESP 14; O2SAT 100
[2019-06-12] MEDS: POTASSIUM CHLORIDE 20 MEQ PACKET (FOR LIQUID) 40 MEQ PO ×2 (08:08→17:18)
[2019-06-12] MEDS: glyBURIDE 2.5 MG TABLET PO (08:09)
[2019-06-12] MEDS: ONDANSETRON INJ 4 MG/2 ML VIAL IV PUSH (09:01)
[2019-06-12] MEDS: KETOROLAC 15 MG/ML VIAL (*BKC) IV PUSH ×2 (09:51→19:00)
[2019-06-12 10:57] LABS: Hematocrit 33.3 % (37.0-47.0); Mean Corpuscular Hemoglobin 27.6 pg (26-34); Mean Corpuscular Volume 83.7 fl (80-100); Platelet Count Result 312 k/mm3 (150-375); Red Blood Count 3.98 M/mm3 (4.2-5.4); Red Cell Distribution Width 14.4 % (11.5-14.5); White Blood Count 6.2 K/mm3 (4.5-10.0)
[2019-06-12 11:06] LABS: Blood Urea Nitrogen 15 mg/dL (7-17); Calcium 8.9 mg/dL (8.4-10.2); Carbon Dioxide 17 mmol/L (22-30); Chloride 99 mmol/L (98-107); Estimated CRCL calculation 44 ml/min; Estimated Glomerular Filt Rate 43; Glucose 394 mg/dL (65-105); Magnesium 1.6 mg/dL (1.6-2.3); Potassium 3.9 mmol/L (3.4-5.0); Sodium 133 mmol/L (137-145)
[2019-06-12 11:20] LABS: Glucose Point of Care 364 (65-105)
--- NOTE | 2019-06-12 13:14 | WPDANESPN ---
Anes - Prog Note Post-Op Date/Time: 06/12/19 13:14 Cardiovascular status: normal Respiratory status: normal Airway patency: baseline Mental status: baseline Post-Op hydration status: normal Vital Signs: Last Vital Signs Temp 36.1 C L 06/12/19 06:59 Pulse 76 06/12/19 08:00 Resp 14 06/12/19 08:00 BP 158/85 H 06/12/19 06:59 Pulse Ox 100 06/12/19 08:00 I/O: Intake & Output 06/11/19 06/12/19 06/12/19 23:59 07:59 15:59 Intake Total 1080 340 481 Output Total 200 500 Balance 880 340 -19 Laboratory Tests 06/12/19 10:26 06/12/19 10:26 06/11/19 06/11/19 06/11/19 13:51 14:40 18:02 WBC RBC Hgb Hct MCV MCH MCHC RDW Plt Count MPV Sodium Potassium Chloride Carbon Dioxide BUN Creatinine Estim Creat Clear Calc Estimated GFR Glucose POC Capillary Glucose 327 H 339 H 476 H Calcium Magnesium 06/11/19 06/12/19 06/12/19 22:50 04:11 07:23 WBC RBC Hgb Hct MCV MCH MCHC RDW Plt Count MPV Sodium Potassium Chloride Carbon Dioxide BUN Creatinine Estim Creat Clear Calc Estimated GFR Glucose POC Capillary Glucose 456 H 251 H 262 H Calcium Magnesium 06/12/19 06/12/19 06/12/19 10:26 10:26 11:16 WBC 6.2 RBC 3.98 L Hgb 11.0 L Hct 33.3 L MCV 83.7 MCH 27.6 MCHC 33.0 RDW 14.4 Plt Count 312 MPV 11.0 H Sodium 133 L Potassium 3.9 Chloride 99 Carbon Dioxide 17 L BUN 15 Creatinine 1.30 H Estim Creat Clear Calc 44 Estimated GFR 43 L Glucose 394 H POC Capillary Glucose 364 H Calcium 8.9 Magnesium 1.6 Microbiology 06/11/19 13:11 Perineum Wound Culture - Final Post-procedural complaints: none Patient Feedback: Patient satisfied with anesthetic care.
[2019-06-12 13:20] VITALS: BP 136/90; PULSE 109; RESP 20; TEMP 36.6; O2SAT 100
--- NOTE | 2019-06-12 13:21 | PM.IMPN ---
Progress Note: A&P Assessment and Plan (1) Diabetes mellitus: Code(s): E11.9 - Type 2 diabetes mellitus without complications Status: Acute Assessment and Plan: We will continue with sliding scale insulin and start her on glyburide. Patient was taken off her metformin due to acute renal failure. life educator was greatly be appreciated. (2) Endometrial cancer: Code(s): C54.1 - Malignant neoplasm of endometrium Status: Acute Assessment and Plan: 06/12/19 13:21 Patient is a 53-year-old female history of cerebral positive hypertension diabetes with history of endometrial cancer patient had been seen by radiation oncologist and had a therapy resulting in radiation burn to her pelvic area, patient also had a hysterectomy, patient had lost bowel and bladder function, and there was urinary retention, plan was to have urologist evaluate the patient for possible cystoscopy and placement of drain however the pelvic reason is so necrotic the urologist not able to visualize meatus, however urine continue to flow as patient is incontinent we were asked to see the patient for medical management of diabetes and hypertension, today patient is clinically stable shewants to go home however physical therapist evaluate the patient and sees a max assist, this be difficult as patient lives alone at home, plan is to have [facility] evaluate the patient patient will benefit from acute rehab, patient denies any abdominal pain nausea or vomiting fever or chills (3) Urinary retention with incomplete bladder emptying: Code(s): R33.9 - Retention of urine, unspecified Status: Acute Assessment and Plan: Patient seen by urologist unable to cystoscopy and nephrostomy tube, patient will continue to wear diaper Subjective Date/time seen: 06/12/19 13:21 Patient is a 53-year-old female history of cerebral positive hypertension diabetes with history of endometrial cancer patient had been seen by radiation oncologist and had a therapy resulting in radiation burn to her pelvic area, patient also had a hysterectomy, patient had lost bowel and bladder function, and there was urinary retention, plan was to have urologist evaluate the patient for possible cystoscopy and placement of drain however the pelvic reason is so necrotic the urologist not able to visualize meatus, however urine continue to flow as patient is incontinent we were asked to see the patient for medical management of diabetes and hypertension, today patient is clinically stable shewants to go home however physical therapist evaluate the patient and sees a max assist, this be difficult as patient lives alone at home, plan is to have [facility] evaluate the patient patient will benefit from acute rehab, patient denies any abdominal pain nausea or vomiting fever or chills Review of Systems Review of Systems: All systems reviewed & are unremarkable except as noted in HPI and below Exam Const: General: comfortable and no acute distress HENMT: General nose exam: Normal nares present Mouth: Yes moist mucous membranes Eyes: General: appearance normal, both eyes and all related structures Sclera: sclerae normal Neck: Neck: supple Resp: Effort & Inspection: normal respiratory effort Auscultation: clear to auscultation bilaterally Cardio: Rate: regular rate Rhythm: regular rhythm Skin: General skin exam: normal color and no rashes or lesions noted Neuro: Speech: normal speech Sensory Exam: normal sensation Extrem: General: normal to inspection Psych: Other: Patient is crying and wants to go Objective Data Vital Signs Vital Signs: Vital Signs - 24 hr 06/11/19 13:30 06/11/19 14:00 06/11/19 14:14 Temperature 97.8 F Pulse Rate 85 84 68 Respiratory Rate 17 19 16 Blood Pressure 116/64 157/86 H 150/82 H Pulse Oximetry 100 100 100 06/11/19 16:00 06/11/19 20:35 06/12/19 06:59 Temperature 98.6 F 97 F L 97 F L Pulse Rate 99 76 Respiratory Rate 16 16 14
[2019-06-12 16:09] VITALS: BP 150/83; PULSE 88; RESP 88; TEMP 36.1; O2SAT 100
--- NOTE | 2019-06-12 16:32 | PC.NURSE ---
Patient asked why is she not getting her home medications. Upon home medication assessment their are some medications with red question nunez on some home medications. Clarified home medications synthroid, metoprolol, metformin, allopurinol, simvastatin, triamteren/HCTC, omeprazole with [facility].
[2019-06-12 16:37] LABS: Glucose Point of Care 302 (65-105)
[2019-06-12] MEDS: LOTEPREDNOL ETABONATE 0.5% OPH 5 ML BOTTLE 1 DROP EACH EYE (17:29)
[2019-06-12 23:03] VITALS: BP 129/72; PULSE 84; RESP 16; TEMP 36.4; O2SAT 98
[2019-06-12 23:26] LABS: Glucose Point of Care 263 (65-105)
[2019-06-13 06:15] LABS: Hematocrit 29.7 % (37.0-47.0); Hemoglobin 9.7 g/dL (12.0-15.0); Mean Corpuscular HGB Conc 32.7 g/dl (32-36); Mean Corpuscular Hemoglobin 27.9 pg (26-34); Mean Corpuscular Volume 85.3 fl (80-100); Mean Platelet Volume 10.3 fl (7.4-10.4); Platelet Count Result 261 k/mm3 (150-375); Red Blood Count 3.48 M/mm3 (4.2-5.4); Red Cell Distribution Width 14.7 % (11.5-14.5); White Blood Count 3.8 K/mm3 (4.5-10.0)
[2019-06-13 06:30] VITALS: BP 134/78; PULSE 81; RESP 18; TEMP 36.1; O2SAT 100
[2019-06-13 06:30] LABS: Blood Urea Nitrogen 16 mg/dL (7-17); Calcium 8.7 mg/dL (8.4-10.2); Carbon Dioxide 23 mmol/L (22-30); Chloride 103 mmol/L (98-107); Estimated CRCL calculation 41 ml/min; Estimated Glomerular Filt Rate 39; Glucose 213 mg/dL (65-105); Sodium 136 mmol/L (137-145)
[2019-06-13] MEDS: LEVOTHYROXINE SODIUM 100 MCG TABLET PO (06:31)
[2019-06-13] MEDS: LEVOTHYROXINE SODIUM 75 MCG TABLET PO (06:31)
--- NOTE | 2019-06-13 07:22 | PM.OBPNVD ---
OB - PN: Subj Subjective Date/time seen: 06/13/19 07:22 Interval history: still feeling week. being readied for [facility] OB - PN: Obj Data Labs CBC & Chem 7: 06/13/19 05:42 06/13/19 05:42 Labs: Laboratory Results - last 24 hr 06/12/19 06/12/19 06/12/19 07:23 10:26 10:26 WBC 6.2 RBC 3.98 L Hgb 11.0 L Hct 33.3 L MCV 83.7 MCH 27.6 MCHC 33.0 RDW 14.4 Plt Count 312 MPV 11.0 H Sodium 133 L Potassium 3.9 Chloride 99 Carbon Dioxide 17 L BUN 15 Creatinine 1.30 H Estim Creat Clear Calc 44 Estimated GFR 43 L Glucose 394 H POC Capillary Glucose 262 H Calcium 8.9 Magnesium 1.6 06/12/19 06/12/19 06/12/19 11:16 16:34 23:19 WBC RBC Hgb Hct MCV MCH MCHC RDW Plt Count MPV Sodium Potassium Chloride Carbon Dioxide BUN Creatinine Estim Creat Clear Calc Estimated GFR Glucose POC Capillary Glucose 364 H 302 H 263 H Calcium Magnesium 06/13/19 06/13/19 05:42 05:42 WBC 3.8 L RBC 3.48 L Hgb 9.7 L Hct 29.7 L MCV 85.3 MCH 27.9 MCHC 32.7 RDW 14.7 H Plt Count 261 MPV 10.3 Sodium 136 L Potassium 4.0 Chloride 103 Carbon Dioxide 23 BUN 16 Creatinine 1.40 H Estim Creat Clear Calc 41 Estimated GFR 39 L Glucose 213 H POC Capillary Glucose Calcium 8.7 Magnesium OB - PN A/P Plan Comments: incontinene/radiation injury plan to [facility] Time Spent With Patient Time: Total time spent is greater than 50% in coordination of care (as documented) at patient's floor/unit and/or counseling patient: Time with patient: less than 15 minutes Review of Systems Review of Systems: All systems reviewed & are unremarkable except as noted in HPI and below
[2019-06-13 08:30] LABS: Glucose Point of Care 210 (65-105)
[2019-06-13] MEDS: TRIAMTERENE 37.5 MG/HCTZ 25 MG (MAXZIDE) TABLET 2 TAB PO (08:35)
[2019-06-13] MEDS: metFORMIN HCL XR 500 MG TAB.SR.24H PO (08:35)
[2019-06-13 08:36] VITALS: PULSE 81
[2019-06-13] MEDS: glyBURIDE 2.5 MG TABLET PO (08:36)
[2019-06-13] MEDS: SIMVASTATIN 20 MG TABLET PO (08:36)
[2019-06-13] MEDS: METOPROLOL SUCCINATE EXT REL 100 MG TABCR 200 MG PO (08:36)
[2019-06-13] MEDS: POTASSIUM CHLORIDE 20 MEQ PACKET (FOR LIQUID) 40 MEQ PO ×2 (08:36→16:54)
[2019-06-13] MEDS: allopurinoL 300 MG TABLET PO (08:36)
[2019-06-13] MEDS: LOTEPREDNOL ETABONATE 0.5% OPH 5 ML BOTTLE 1 DROP EACH EYE ×3 (08:36→16:54)
[2019-06-13] MEDS: PANTOPRAZOLE 40 MG TABLET PO (08:36)
[2019-06-13] MEDS: INSULIN ASPART (*BKC) 100 UNITS/ML SUB-Q ×3 (08:37→16:52)
[2019-06-13 12:00] VITALS: BP 141/85; PULSE 89; RESP 16; TEMP 36.3; O2SAT 100
[2019-06-13 12:12] LABS: Glucose Point of Care 298 (65-105)
--- NOTE | 2019-06-13 12:39 | PM.IMPN ---
Progress Note: A&P Assessment and Plan (1) Diabetes mellitus: Code(s): E11.9 - Type 2 diabetes mellitus without complications Status: Acute Assessment and Plan: We will continue with sliding scale insulin and start her on glyburide. Patient was taken off her metformin due to acute renal failure. nursing educator was greatly be appreciated. (2) Endometrial cancer: Code(s): C54.1 - Malignant neoplasm of endometrium Status: Acute Assessment and Plan: 06/13/19 12:39 Patient is a 53-year-old female history of cerebral positive hypertension diabetes with history of endometrial cancer patient had been seen by radiation oncologist and had a therapy resulting in radiation burn to her pelvic area, patient also had a hysterectomy, patient had lost bowel and bladder function, and there was urinary retention, plan was to have urologist evaluate the patient for possible cystoscopy and placement of drain however the pelvic reason is so necrotic the urologist not able to visualize meatus, however urine continue to flow as patient is incontinent we were asked to see the patient for medical management of diabetes and hypertension, today patient is clinically stable shewants to go home however physical therapist evaluate the patient and sees a max assist, this be difficult as patient lives alone at home, plan is to have [facility] evaluate the patient patient will benefit from acute rehab, patient was assess by [facility] and she is accepted, will transfer patient today. (3) Urinary retention with incomplete bladder emptying: Code(s): R33.9 - Retention of urine, unspecified Status: Acute Assessment and Plan: Patient seen by urologist unable to cystoscopy and nephrostomy tube, patient will continue to wear diaper Subjective Date/time seen: 06/13/19 12:39 Patient is a 53-year-old female history of cerebral positive hypertension diabetes with history of endometrial cancer patient had been seen by radiation oncologist and had a therapy resulting in radiation burn to her pelvic area, patient also had a hysterectomy, patient had lost bowel and bladder function, and there was urinary retention, plan was to have urologist evaluate the patient for possible cystoscopy and placement of drain however the pelvic reason is so necrotic the urologist not able to visualize meatus, however urine continue to flow as patient is incontinent we were asked to see the patient for medical management of diabetes and hypertension, today patient is clinically stable shewants to go home however physical therapist evaluate the patient and sees a max assist, this be difficult as patient lives alone at home, plan is to have [facility] evaluate the patient patient will benefit from acute rehab, patient was assess by [facility] and she is accepted, will transfer patient today. Review of Systems Review of Systems: All systems reviewed & are unremarkable except as noted in HPI and below Exam Const: General: comfortable and no acute distress HENMT: General nose exam: Normal nares present Mouth: Yes moist mucous membranes Eyes: General: appearance normal, both eyes and all related structures Sclera: sclerae normal Neck: Neck: supple Resp: Effort & Inspection: normal respiratory effort Auscultation: clear to auscultation bilaterally Cardio: Rate: regular rate Rhythm: regular rhythm Skin: General skin exam: normal color and no rashes or lesions noted Neuro: Speech: normal speech Sensory Exam: normal sensation Extrem: General: normal to inspection Psych: Affect: Anxious affect present Objective Data Vital Signs Vital Signs: Vital Signs - 24 hr 06/12/19 13:20 06/12/19 16:09 06/12/19 23:03 Temperature 97.9 F 97.0 F L 97.5 F L Pulse Rate 109 H 88 84 Respiratory Rate 20 88 H 16 Blood Pressure 136/90 150/83 H 129/72 Pulse Oximetry 100 100 98 06/13/19 06:30 06/13/19 08:36 Temperature 97 F L Pulse Rate 81 81 Respiratory Rate 18 Blood Pres
[2019-06-13] MEDS: ACETAMINOPHEN 500 MG TABLET PO (15:01)
[2019-06-13 16:34] VITALS: BP 137/66; PULSE 73; RESP 18; TEMP 36.4
[2019-06-13 16:34] LABS: Glucose Point of Care 273 (65-105)
--- NOTE | 2019-06-24 15:06 | P.DS_ITS ---
DS: Diagnosis Admitting Diagnosis Admitting Diagnosis: Unspecified hydronephrosis DS: Summary Time Spent with Patient Time attestation: Total time spent providing and/or coordinating discharge services: Exam Const: General: no acute distress Eyes: General: appearance normal, both eyes and all related structures Neck: Neck: supple and no JVD Thyroid: thyroid normal Resp: Effort & Inspection: normal respiratory effort Auscultation: clear to auscultation bilaterally Cardio: Rate: regular rate Rhythm: regular rhythm GI: Inspection: non-distended GI Palp: Yes Soft to palpation, No Tenderness to palpation present (GI) and No Guarding due to palpation present (GI) Auscultation: normal bowel sounds : General: Yes bladder normal to palpation External Female Exam: normal external appearance Speculum Exam - Vagina: normal vaginal discharge and No vaginal bleeding Speculum Exam - Cervix: nontender Bimanual exam- vagina & uterus: bladder normal to palpation and No Cervical tenderness present OB/external & speculum: No vaginal bleeding Skin: General skin exam: no rashes or lesions noted Extrem: General: normal to inspection and no edema Psych: Mental Status: mental status grossly normal Affect: normal affect DS: Data Data Completed and Pending Completed studies during hospitalization: Pending at discharge 06/11/19 13:06 Surgical [PTH] Routine Discharge Plan Discharge Attending physician on discharge: Philip Bustillos Consulting providers: Zoltan Borrego ; Babak Knott ; Janae Freed ; Gary Hernandez ; Geo Champion V. ; Qamar Jorge Aaron R. Discharging Clinician: Philip Bustillos Anticipated Discharge Date/Time: 06/11/19 17:01 Patient Disposition: [facility] ([facility]) Activity: as tolerated Diet: regular Discharge Instructions: patient to follow up with Dr. Anatoliy foster. Advised to go to [facility] if symptoms worsen Patient Instructions: Antibiotic Form Stand Alone Forms: General Discharge Information Follow-up/Referrals: [facility] [Outside] Date of admission: 06/10/19 13:34 Primary Care Provider: Iza Moay Admitting Provider: Philip Bustillos Discharge Date/Time: 06/13/19 17:52 Attending physician on admission: Charlie Tim Condition: Stable Quality VTE Prophylaxis VTE prophylaxis: mechanical ordered
== END 2019-06-13 17:52 | DRG 696 ==
LOC: ANHED 18:34 → ANH3MED 19:03
PROVIDERS: Emergency Medicine; Family Medicine; Urology; Admitting Provider Student in an Organized Health Care Education/Training Program; Emergency Provider Emergency Medicine; PCP Family Medicine; Visit Provider Obstetrics & Gynecology
PROC: 0UJHXZZ Inspection of Vagina and Cul-de-sac, External Approach (ICD-10-PCS; CPT 52352; principal; 2019-06-11 12:30)
DX: R33.9 Retention of urine, unspecified (principal); N13.30 Unspecified hydronephrosis; Y84.2 Radiological procedure and radiotherapy as the cause of abnormal reaction of the patient, or of later complication, without mention of misadventure at the time of the procedure; Z85.42 Personal history of malignant neoplasm of other parts of uterus; Z90.710 Acquired absence of both cervix and uterus; G80.9 Cerebral palsy, unspecified; E11.9 Type 2 diabetes mellitus without complications; E78.5 Hyperlipidemia, unspecified; I10 Essential (primary) hypertension; R32 Unspecified urinary incontinence; E66.9 Obesity, unspecified; Z68.31 Body mass index [BMI] 31.0-31.9, adult; K21.9 Gastro-esophageal reflux disease without esophagitis; M10.9 Gout, unspecified; M41.9 Scoliosis, unspecified; I89.0 Lymphedema, not elsewhere classified; Z53.09 Procedure and treatment not carried out because of other contraindication; N89.5 Stricture and atresia of vagina
CPT/HCPCS: 36415; 36600; 51701; 72195; 74177; 80048; 80053; 82375; 82805; 82948; 83050; 83605; 83690; 83735; 84100; 84439; 84443; 84480; 85025; 85027; 85610; 85730; 87070; 87205; 87804; 88305; 96361; 96365; 96375; 97110; 97116; 97161; 97165; 99285; A9270; C1769; G0378; J0690; J1100; J1815; J1885; J2250; J2270; J2405; J2543; J2704; J3010; J7030; J7120; Q9967

== ENCOUNTER 2019-06-13 19:01 | IRF | payer MEDICARE, MEDICAID, SELFPAY ==
[2019-06-13 18:05] VITALS: BP 145/70; PULSE 90; RESP 18; TEMP 36.8; O2SAT 98; BMI 33.5
--- NOTE | 2019-06-13 18:41 | ADMGEN ---
This patient, Stephanie De La Garza, was admitted to [facility] Room 226-01. Patient/family oriented to hospital policies and general routines including ID bracelet, bed and alarms, visiting hours, pain management, procedures, bathroom and other care routines, personal items, smoking policy, room service/diet, and visiting hours. Valuables list has been completed. Information on how to activate the Rapid Response Team has been discussed. Patient/Family are encouraged to report perceived risks to care and to ask questions if they do not understand what they are told or what they should do.
[2019-06-13 21:13] LABS: Glucose Point of Care 265 (65-105)
[2019-06-13 22:00] VITALS: BP 154/82; PULSE 92; RESP 18; TEMP 36.7; O2SAT 100
[2019-06-14 05:20] LABS: Basophils Absolute Auto 0.1 K/mm3 (0.0-0.1); Basophils Percent Auto 1.2 % (0.2-1.2); Eosinophils Absolute Auto 0.2 K/mm3 (0-0.3); Eosinophils Percent Auto 3.3 % (0-4.4); Hematocrit 30.4 % (37.0-47.0); Hemoglobin 9.7 g/dL (12.0-15.0); Immature Granulocyte Absolute 0.09 K/mm3 (0.00-0.031); Immature Granulocyte Percent A 1.8 % (0-0.5); Lymphocytes Absolute Auto 0.94 K/mm3 (0.9-3.2); Lymphocytes Percent Auto 18.3 % (18.3-44.2); Mean Corpuscular HGB Conc 31.9 g/dl (32-36); Mean Corpuscular Hemoglobin 27.3 pg (26-34); Mean Corpuscular Volume 85.6 fl (80-100); Mean Platelet Volume 10.1 fl (7.4-10.4); Monocytes Absolute Auto 0.5 K/mm3 (0.1-0.6); Monocytes Percent Auto 8.8 % (2.6-8.5); Neutrophils Absolute Auto 3.4 K/mm3 (1.3-6.7); Neutrophils Percent Auto 66.6 % (45.5-73.1); Platelet Count Result 281 k/mm3 (150-375); Red Blood Count 3.55 M/mm3 (4.2-5.4); Red Cell Distribution Width 14.7 % (11.5-14.5); White Blood Count 5.1 K/mm3 (4.5-10.0)
[2019-06-14 05:26] LABS: Blood Urea Nitrogen 18 mg/dL (7-17); Carbon Dioxide 22 mmol/L (22-30); Chloride 101 mmol/L (98-107); Estimated CRCL calculation 40 ml/min; Estimated Glomerular Filt Rate 36; Glucose 263 mg/dL (65-105); Potassium 4.6 mmol/L (3.4-5.0); Sodium 135 mmol/L (137-145)
[2019-06-14 06:00] VITALS: BP 130/87; PULSE 82; RESP 18; TEMP 36.4; O2SAT 99
[2019-06-14] MEDS: LEVOTHYROXINE SODIUM 100 MCG TABLET PO (06:11)
[2019-06-14] MEDS: LEVOTHYROXINE SODIUM 75 MCG TABLET PO (06:11)
[2019-06-14 06:41] LABS: Glucose Point of Care 269 (65-105)
[2019-06-14] MEDS: TRIAMTERENE 37.5 MG/HCTZ 25 MG (MAXZIDE) TABLET 2 TAB PO (08:53)
[2019-06-14] MEDS: METOPROLOL SUCCINATE EXT REL 100 MG TABCR 200 MG PO (08:53)
[2019-06-14] MEDS: allopurinoL 300 MG TABLET PO (08:53)
[2019-06-14] MEDS: SIMVASTATIN 20 MG TABLET PO (08:53)
[2019-06-14] MEDS: metFORMIN HCL XR 500 MG TAB.SR.24H PO (08:53)
[2019-06-14] MEDS: PANTOPRAZOLE 40 MG TABLET PO (08:53)
[2019-06-14] MEDS: INSULIN ASPART (*BKC) 100 UNITS/ML SUB-Q ×3 (08:54→18:15)
[2019-06-14 12:26] LABS: Glucose Point of Care 292 (65-105)
[2019-06-14 14:00] VITALS: BP 123/75; PULSE 72; RESP 18; TEMP 36.6; O2SAT 100
--- NOTE | 2019-06-14 14:00 | WPDREHABHP ---
H&P: HPI History of Present Illness Chief complaint: Acute renal failure Narrative: Stephanie De La Garza is a 53 year old femaleHISTORY OF PRESENT ILLNESS: The patient's primary rehab impairment category is 20-miscellaneous, debility The etiologic diagnosis is acute renal failure I saw this patient [id number] on June 14, 2019 at 2:00 p.m. The patient is a 53-year-old right-handed woman who presented to [facility] from primary care physician Dr. Buckley hers office with chronic unmanageable lower abdominal pain. She has a prior medical history of hypertension, cerebral palsy and endometrial cancer in 2014 which was treated with radiation and she is now incontinent of bowel and bladder. She had a presumed UTI and was started on Zosyn for broad-spectrum coverage but only received 1 dose. Urine was unable to be collected for as specimen. Laboratory daughter up and I will to the hospital were sodium 129 potassium 3.1 creatinine 1.6, glucose 620, TSH of 7. CT of the abdomen demonstrated 2 x 1.8 x 5.1 centimeter gas and fluid collection within the vaginal cárdenas and cervical cough post prior history extremity and reported radiation treatment. There was a small region of decreased attenuation along the anterior wall of the cervical cuff which raised some concern for the psycho vaginal fistula. Pelvic MRI showed no was I co vaginal fistula. She was taken to the OR on June 11 and cystoscopy was attempted but unsuccessful. There was no urethral meatus noted and what was visualized through a scope was necrotic friable tissue. It is presumed that her entire vaginal wall is necrotic. Biopsy of the area showed tissue that was predominantly necrotic. It was acutely inflamed and bacterial colonization. Bilateral nephrostomy tube were considered but the patient's creatinine level improved with no intervention. She is followed by Dr. MCGILL and [facility] will follow-up with him as soon as and follow-up appointment is made following rehab the patient was initially taken of her metformin due to acute renal failure and was started on glyburide on June 12 due to hyperglycemia throughout hospital stay. She presents alert and oriented x3 demonstrates decreased strength and endurance impaired balance and decrease safety awareness. Therapy was initiated at the acute care facility and the patient transferred to us from [facility] on June 13, 2019 FALLS OR SURGERIES: The patient has had no major surgeries in the 100 days prior to admission. They had no falls in the past year. They had no falls with injury in the past year. PAST MEDICAL HISTORY: abnormal weight loss, cerebral palsy, diabetes mellitus type 2, endometrial cancer, GERD, gout, hypertension, hyperlipidemia, scoliosis, lymphedema of the lower extremities of moderately severe degree. PAST SURGICAL HISTORY: Hysterectomy, tendon lengthening to the lower extremities and also radiation treatment for her endometrial cancer SOCIAL HISTORY: patient lives in a mobile home with her brother. At baseline she has difficulty reaching her feet for some bathing and dressing. She does not get into the tub, instead she sponge baths. Her brother does the cooking cleaning shopping and driving she does do some of her own laundry. She used a cane for mobility. FAMILY HISTORY: Mother with the congestive heart failure kidney disease hypertension. Father with COPD and heart disease PRIOR LEVEL OF FUNCTION: Eating was INDEPENDENT Oral Care was INDEPENDENT Toileting Hygiene was supervision Shower/Bathing was supervision Upper Body Dressing was INDEPENDENT Lower Body Dressing was INDEPENDENT Donning/[place] Footwear was INDEPENDENT Rolling Left and Right was INDEPENDENT Sit to Lying was INDEPENDENT Lying to Sitting was INDEPENDENT Sit to Stand was INDEPENDENT Bed to Chair Transfers was INDEPENDENT Toilet Transfers was INDEPENDENT Walking was INDEPENDENT 750 feet with w
[2019-06-14 18:09] LABS: Glucose Point of Care 257 (65-105)
[2019-06-14 21:19] LABS: Glucose Point of Care 195 (65-105)
[2019-06-14 22:00] VITALS: BP 121/63; PULSE 82; RESP 18; TEMP 36.7; O2SAT 99
[2019-06-15 06:00] VITALS: BP 135/84; PULSE 78; RESP 18; TEMP 36.7; O2SAT 94
[2019-06-15] MEDS: LEVOTHYROXINE SODIUM 100 MCG TABLET PO (07:08)
[2019-06-15] MEDS: LEVOTHYROXINE SODIUM 75 MCG TABLET PO (07:08)
[2019-06-15 07:16] LABS: Glucose Point of Care 209 (65-105)
[2019-06-15] MEDS: INSULIN ASPART (*BKC) 100 UNITS/ML SUB-Q ×3 (10:35→18:29)
[2019-06-15] MEDS: allopurinoL 300 MG TABLET PO (10:36)
[2019-06-15] MEDS: SIMVASTATIN 20 MG TABLET PO (10:37)
[2019-06-15] MEDS: TRIAMTERENE 37.5 MG/HCTZ 25 MG (MAXZIDE) TABLET 2 TAB PO (10:37)
[2019-06-15] MEDS: metFORMIN HCL XR 500 MG TAB.SR.24H PO (10:37)
[2019-06-15] MEDS: PANTOPRAZOLE 40 MG TABLET PO (10:37)
[2019-06-15 10:38] VITALS: PULSE 76
[2019-06-15] MEDS: METOPROLOL SUCCINATE EXT REL 100 MG TABCR 200 MG PO (10:38)
[2019-06-15 12:14] LABS: Glucose Point of Care 247 (65-105)
[2019-06-15 14:00] VITALS: BP 136/72; PULSE 82; RESP 18; TEMP 36.1; O2SAT 100
--- NOTE | 2019-06-15 14:29 | WPDNEURORHBP ---
Subjective Date/time seen: 06/15/19 14:29 Interval history: patient who has a lifelong cerebral palsy along with the gynecology K[place] cancer with bladder incontinence and bowel incontinence is here because of post acute renal failure generalized debility and weakness She has chronic diarrhea and incontinence of the bowel and bladder however complains of pelvic pain is also chronic but that a 9 by of this examination she was comfortable and wanted to go home Review of Systems Constitutional: Constitutional: Reports no additional constitutional complaints Eyes: Eyes: Reports no additional eye complaints ENT: Reports system reviewed and no additional complaints, except as documented Cardiovascular: Cardiovascular: Reports no additional cardiovascular complaints Respiratory: Respiratory: Reports no additional respiratory complaints Gastrointestinal: Gastrointestinal: Reports no additional gastrointestinal complaints Genitourinary: Genitourinary: Reports no additional female genitourinary complaints Musculoskeletal: Musculoskeletal: Reports no additional musculoskeletal complaints Integumentary/Breasts: Skin/Breast: Reports system reviewed and no additional complaints, except as docu Neurologic: Reports system reviewed and no additional complaints, except as documented Psychiatric: Psychiatric: Reports no additional psychiatric complaints Functional Status Ambulation Ability Ability to Ambulate 10 Feet: Minimum Assistance X 1 Ability to Ambulate 50 Feet With 2 Turns: Minimum Assistance X 1 Ability to Ambulate 150 Feet: Minimum Assistance X 1 Ambulation Assistive Devices: Cane and Walker, Wheeled Exam Const: General: comfortable and no acute distress HENMT: General nose exam: Normal nares present Mouth: Yes moist mucous membranes Eyes: General: appearance normal, both eyes and all related structures Neck: Neck: supple and no JVD Resp: Effort & Inspection: normal respiratory effort Auscultation: clear to auscultation bilaterally Cardio: Rate: regular rate Rhythm: regular rhythm GI: GI Palp: Yes Soft to palpation Auscultation: normal bowel sounds Other: she had a has a bowel dysfunction by the fact that she is incontinence of stool due to gynecology K[place] surgery and postradiation Skin: General skin exam: normal color and no rashes or lesions noted Neuro: Other: the patient has cerebral palsy and intellectually challenged however awake and alert will oriented time place and person with relatively dysarthric and dysphonic and generalized weakness however no focal or lateralizing weakness Extrem: General: normal to inspection Objective Data Vital Signs Vital Signs: Vital Signs - 24 hr 06/14/19 22:00 06/15/19 06:00 06/15/19 10:38 Temperature 36.7 C 36.7 C Pulse Rate 82 78 76 Respiratory Rate 18 18 Blood Pressure 121/63 135/84 Pulse Oximetry 99 94 Intake/Output Intake/Output: Intake & Output 06/12/19 06/13/19 06/14/19 06/15/19 23:59 23:59 23:59 23:59 Intake Total 780 360 Balance 780 360 Meds/Results Medications: Active Medications Generic Name Dose Route Start Last Admin Trade Name Freq PRN Reason Stop Dose Admin Acetaminophen 500 mg 06/13/19 19:00 Tylenol Tablet PO Q4H PRN Mild Pain (1-3) Or Fever Hydrocodone Bitart/Acetaminophen 1 tab 06/13/19 19:00 06/14/19 02:55 [place] 5-325 Mg PO 1 tab Q6H PRN Administration Pain Rated 4-6 Allopurinol 300 mg 06/14/19 09:00 06/15/19 10:36 Zyloprim PO 300 mg DAILY BOBO Administration Dextrose 12.5 gm 06/13/19 21:25 Dextrose 50% Syringe IV PUSH PRN PRN Hypoglycemia Protocol Diphenoxylate HCl/Atropine 1 tablet 06/14/19 15:58 Lomotil Tab 2.5 Mg PO Q4H PRN Diarrhea Glucagon 1 mg 06/13/19 21:25 Glucagon For Inj IM PRN PRN Hypoglycemia Protocol Glucose 15 gm 06/13/19 21:25 Glutose 15 PO PRN PRN Hypoglycemia Protocol Dex
[2019-06-15 17:43] LABS: Glucose Point of Care 235 (65-105)
[2019-06-15 20:35] LABS: Glucose Point of Care 372 (65-105)
[2019-06-15 22:00] VITALS: BP 139/83; PULSE 78; RESP 18; TEMP 36.3; O2SAT 100
[2019-06-16 06:00] VITALS: BP 142/70; PULSE 80; RESP 20; TEMP 36.5; O2SAT 100
[2019-06-16] MEDS: LEVOTHYROXINE SODIUM 75 MCG TABLET PO (06:13)
[2019-06-16] MEDS: LEVOTHYROXINE SODIUM 100 MCG TABLET PO (06:13)
[2019-06-16 07:06] LABS: Glucose Point of Care 225 (65-105)
[2019-06-16 10:00] VITALS: BP 124/71; PULSE 93
[2019-06-16] MEDS: metFORMIN HCL XR 500 MG TAB.SR.24H PO (10:07)
[2019-06-16] MEDS: TRIAMTERENE 37.5 MG/HCTZ 25 MG (MAXZIDE) TABLET 2 TAB PO (10:07)
[2019-06-16] MEDS: METOPROLOL SUCCINATE EXT REL 100 MG TABCR 200 MG PO (10:08)
[2019-06-16] MEDS: allopurinoL 300 MG TABLET PO (10:08)
[2019-06-16] MEDS: SIMVASTATIN 20 MG TABLET PO (10:08)
[2019-06-16] MEDS: PANTOPRAZOLE 40 MG TABLET PO (10:09)
[2019-06-16] MEDS: INSULIN ASPART (*BKC) 100 UNITS/ML SUB-Q ×3 (10:13→17:54)
[2019-06-16 12:27] LABS: Glucose Point of Care 234 (65-105)
[2019-06-16 14:00] VITALS: BP 113/66; PULSE 77; RESP 18; TEMP 36.1; O2SAT 100
[2019-06-16 15:15] VITALS: BMI 33.5
--- NOTE | 2019-06-16 15:55 | PCNSR ---
On 06/16/19, the student, Charlotte Andrews, provided care and completed [facility] documentation on this patient. I have reviewed the student's documentation and agree with the findings.
--- NOTE | 2019-06-16 17:04 | RPD ---
INDIVIDUALIZED PLAN OF CARE FOR Stephanie De La Garza Brief Synthesis of Pre-Admission Screen, Post-Admission Evaluation and Therapy Evaluations: The patient presents to rehab with Acute renal failure. Comorbidities include HTN, HLD, DMII, cerebral palsy, abdominal pain, vesico-vaginal fistula, hydronephrosis, urinary retention, GERD, gout, diarrhea, endometrial cancer, hyponatremia, hypokalemia, hyperglycemia, anemia, pain, weakness. Deficits include:ADLs, Balance, Cognition, Endurance, Family Training/Education, Mobility, Pain Management, ROM, Safety, Strength, Transfers Blocker And Cutter Contact Lens/Case Management for: Discharge Planning and Patient/Family Counseling Physical Therapy: 5 days per week for 90 minutes. Treatments may include: Therapeutic Exercise, Gait Training, Neuromuscular Re-education, Transfer Training, Community Reintegration, Bed Mobility, Patient/Family Education, Wheelchair Mobility Group Therapy/Concurrent Therapy Rationales: -Improve attention span during functional activities in a distracted environment. -Enhance problem solving and/or adequate judgment skills during functional activities in a distracted environment. -Promote increased safety awareness in a distracted environment to reduce fall risk with functional tasks, transfers, and ambulation to allow a more safe, self-sufficient return to the home environment. -Improve dynamic balance skills to promote safety and independence with functional activities in a distracted environment for maximum gain. Occupational Therapy: 5 days per week for 90 minutes. Treatments may include: Therapeutic Exercise, Therapeutic Activity, Cognitive Training, Self-Care Transfer Training, Community Reintegration, Home Management, Patient/Family Education, Wheelchair Mobility Training, Energy Conservation Training Group Therapy/Concurrent Therapy Rationales: -Allow therapist to observe and teach generalization and carry-over of skills learned in individual therapy. -Enhance problem solving and sequencing skills during therapeutic activities in a distracted environment. -Promote increased safety awareness in a realistic setting to reduce fall risk with functional tasks due to visual and verbal distractions. -Increase functional level with ADLs, ADL transfers and use of adaptive equipment through therapeutic activities with others while promoting safety to allow a more safe, self-sufficient return home. Medical Prognosis: Good Anticipated Length of Stay: 12 days Rehab Goals: Eating Goal: 06-Independent Oral Hygiene Goal: 06-Independent Toileting Hygiene Goal: 04-Supervision or Touching Assistance Shower/Bathe Self Goal: 06-Independent Upper Body Dressing Goal: 06-Independent Lower Body Dressing Goal: 04-Supervision or Touching Assistance Putting On/Taking Off Footwear Goal: 04-Supervision or Touching Assistance Rolling Left and Right Goal: 06-Independent Sit to Lying Goal: 06-Independent Lying to Sitting on Side of Bed Goal: 06-Independent Sit to Stand Goal: 06-Independent Chair/Fqy-on-Nfwzz Transfer Goal: 06-Independent Toilet Transfer Goal: 06-Independent Car Transfer Goal: 05-Setup or Clean Up Assistance Walk 10' Goal: 06-Independent Walk 50' with Two Turns Goal: 06-Independent Walk 150' Goal: 06-Independent Walk 10' on Uneven Surface Goal: 06-Independent 1 Step (Curb) Goal: 06-Independent 4 Steps Goal: 06-Independent 12 Steps Goal Score: 04-Supervision or Touching Assistance Picking Up Object Goal: 06-Independent Wheel 50' with Two Turns Score: 09-Not Applicable Wheel 150' Goal: 09-Not Applicable Anticipated discharge destination: Home
[2019-06-16 17:25] LABS: Glucose Point of Care 246 (65-105)
[2019-06-16 21:30] LABS: Glucose Point of Care 285 (65-105)
[2019-06-16 22:00] VITALS: BP 138/76; PULSE 82; RESP 20; TEMP 36.5; O2SAT 99
[2019-06-17 06:00] VITALS: BP 132/70; PULSE 78; RESP 20; TEMP 36.3; O2SAT 98
[2019-06-17] MEDS: LEVOTHYROXINE SODIUM 75 MCG TABLET PO (06:34)
[2019-06-17] MEDS: LEVOTHYROXINE SODIUM 100 MCG TABLET PO (06:34)
[2019-06-17 06:43] LABS: Glucose Point of Care 208 (65-105)
[2019-06-17 09:31] VITALS: PULSE 78
[2019-06-17] MEDS: METOPROLOL SUCCINATE EXT REL 100 MG TABCR 200 MG PO (09:31)
[2019-06-17] MEDS: PANTOPRAZOLE 40 MG TABLET PO (09:31)
[2019-06-17] MEDS: allopurinoL 300 MG TABLET PO (09:31)
[2019-06-17] MEDS: metFORMIN HCL XR 500 MG TAB.SR.24H PO (09:31)
[2019-06-17] MEDS: INSULIN ASPART (*BKC) 100 UNITS/ML SUB-Q ×3 (09:32→18:25)
[2019-06-17] MEDS: SIMVASTATIN 20 MG TABLET PO (09:32)
[2019-06-17] MEDS: TRIAMTERENE 37.5 MG/HCTZ 25 MG (MAXZIDE) TABLET 2 TAB PO (09:32)
[2019-06-17 12:28] LABS: Glucose Point of Care 248 (65-105)
--- NOTE | 2019-06-17 12:55 | WPDNEURORHBP ---
Subjective Date/time seen: 06/17/19 12:55 Interval history: patient is here because of the primary diagnosis of acute renal failure which has resolved but is responsible for debility generalized weakness and difficulty performing the activities of daily living. The patient denies any pain and engage in therapy her diabetic status is not as good control and she will need a neonatal specialist to help her and os in managing her diabetes better She continues to be gauge in therapy denies any headache chest pain shortness of breath nausea vomiting. Surprisingly she does not have any abdominal pain either Review of Systems Constitutional: Constitutional: Reports no additional constitutional complaints Eyes: Eyes: Reports no additional eye complaints ENT: Reports system reviewed and no additional complaints, except as documented Cardiovascular: Cardiovascular: Reports no additional cardiovascular complaints Respiratory: Respiratory: Reports no additional respiratory complaints Gastrointestinal: Gastrointestinal: Reports no additional gastrointestinal complaints Genitourinary: Genitourinary: Reports no additional female genitourinary complaints Musculoskeletal: Musculoskeletal: Reports no additional musculoskeletal complaints Integumentary/Breasts: Skin/Breast: Reports system reviewed and no additional complaints, except as docu Neurologic: Reports system reviewed and no additional complaints, except as documented Psychiatric: Psychiatric: Reports no additional psychiatric complaints Functional Status Ambulation Ability Ability to Ambulate 10 Feet: Contact Guard Ability to Ambulate 50 Feet With 2 Turns: Contact Guard Ability to Ambulate 150 Feet: Contact Guard Ambulation Assistive Devices: Walker, Wheeled Exam Const: General: comfortable and no acute distress HENMT: General nose exam: Normal nares present Mouth: Yes moist mucous membranes Eyes: General: appearance normal, both eyes and all related structures Neck: Neck: supple and no JVD Resp: Effort & Inspection: normal respiratory effort Auscultation: clear to auscultation bilaterally Cardio: Rate: regular rate Rhythm: regular rhythm GI: GI Palp: Yes Soft to palpation Auscultation: normal bowel sounds Objective Data Vital Signs Vital Signs: Vital Signs - 24 hr 06/16/19 14:00 06/16/19 22:00 06/17/19 06:00 Temperature 36.1 C L 36.5 C 36.3 C L Pulse Rate 77 82 78 Respiratory Rate 18 20 20 Blood Pressure 113/66 138/76 132/70 Pulse Oximetry 100 99 98 06/17/19 09:31 Temperature Pulse Rate 78 Respiratory Rate Blood Pressure Pulse Oximetry Intake/Output Intake/Output: Intake & Output 06/14/19 06/15/19 06/16/19 06/17/19 23:59 23:59 23:59 23:59 Intake Total 780 960 600 480 Balance 780 960 600 480 Meds/Results Medications: Active Medications Generic Name Dose Route Start Last Admin Trade Name Freq PRN Reason Stop Dose Admin Acetaminophen 500 mg 06/13/19 19:00 Tylenol Tablet PO Q4H PRN Mild Pain (1-3) Or Fever Hydrocodone Bitart/Acetaminophen 1 tab 06/13/19 19:00 06/17/19 09:40 [place] 5-325 Mg PO 1 tab Q6H PRN Administration Pain Rated 4-6 Allopurinol 300 mg 06/14/19 09:00 06/17/19 09:31 Zyloprim PO 300 mg DAILY BOBO Administration Dextrose 12.5 gm 06/13/19 21:25 Dextrose 50% Syringe IV PUSH PRN PRN Hypoglycemia Protocol Diphenoxylate HCl/Atropine 1 tablet 06/14/19 15:58 Lomotil Tab 2.5 Mg PO Q4H PRN Diarrhea Glucagon 1 mg 06/13/19 21:25 Glucagon For Inj IM PRN PRN Hypoglycemia Protocol Glucose 15 gm 06/13/19 21:25 Glutose 15 PO PRN PRN Hypoglycemia Protocol Dextrose 1,000 mls @ 100 mls/hr 06/13/19 21:25 Dextrose 5% 1,000 Ml IVPB PRN PRN Hypoglycemia Protocol Insulin Aspart 2 - 5 units 06/14/19 08:00 06/17/19 12:50 Novolog SUB-Q 2 units TIDWM BOBO Administration Prot
[2019-06-17 14:00] VITALS: BP 121/61; PULSE 80; RESP 20; TEMP 36.4; O2SAT 100
[2019-06-17 17:14] LABS: Glucose Point of Care 213 (65-105)
[2019-06-17 21:51] LABS: Glucose Point of Care 248 (65-105)
[2019-06-17 22:00] VITALS: BP 130/68; PULSE 82; RESP 20; TEMP 36.9; O2SAT 98
[2019-06-18] MEDS: LEVOTHYROXINE SODIUM 75 MCG TABLET PO (05:10)
[2019-06-18] MEDS: LEVOTHYROXINE SODIUM 100 MCG TABLET PO (05:10)
[2019-06-18 06:00] VITALS: BP 137/72; PULSE 78; RESP 20; TEMP 36.4; O2SAT 100
[2019-06-18 08:11] LABS: Glucose Point of Care 204 (65-105)
[2019-06-18 08:49] VITALS: PULSE 78
[2019-06-18] MEDS: metFORMIN HCL XR 500 MG TAB.SR.24H PO (08:49)
[2019-06-18] MEDS: TRIAMTERENE 37.5 MG/HCTZ 25 MG (MAXZIDE) TABLET 2 TAB PO (08:49)
[2019-06-18] MEDS: SIMVASTATIN 20 MG TABLET PO (08:49)
[2019-06-18] MEDS: METOPROLOL SUCCINATE EXT REL 100 MG TABCR 200 MG PO (08:49)
[2019-06-18] MEDS: allopurinoL 300 MG TABLET PO (08:49)
[2019-06-18] MEDS: PANTOPRAZOLE 40 MG TABLET PO (08:49)
[2019-06-18] MEDS: INSULIN ASPART (*BKC) 100 UNITS/ML SUB-Q ×3 (08:50→17:16)
--- NOTE | 2019-06-18 11:22 | WPDNEURORHBP ---
Subjective Date/time seen: 06/18/19 11:22 Interval history: patient is here her on the acute rehab floor because of debility weakness with underlying cerebral palsy and also recuperating from the acute renal failure She is doing fairly well does not have any new specific complaints and engage in therapy no headache no chest pain no shortness of breath no nausea or vomiting her abdominal pain is fairly decently controlled Review of Systems Constitutional: Constitutional: Reports no additional constitutional complaints Eyes: Eyes: Reports no additional eye complaints ENT: Reports system reviewed and no additional complaints, except as documented Cardiovascular: Cardiovascular: Reports no additional cardiovascular complaints Respiratory: Respiratory: Reports no additional respiratory complaints Gastrointestinal: Gastrointestinal: Reports no additional gastrointestinal complaints Genitourinary: Genitourinary: Reports no additional female genitourinary complaints Musculoskeletal: Musculoskeletal: Reports no additional musculoskeletal complaints Integumentary/Breasts: Skin/Breast: Reports system reviewed and no additional complaints, except as docu Neurologic: Reports system reviewed and no additional complaints, except as documented Psychiatric: Psychiatric: Reports no additional psychiatric complaints Functional Status Ambulation Ability Ability to Ambulate 10 Feet: Contact Guard Ability to Ambulate 50 Feet With 2 Turns: Contact Guard Ability to Ambulate 150 Feet: Contact Guard Ambulation Assistive Devices: Walker, Wheeled Exam Const: General: comfortable and no acute distress HENMT: General nose exam: Normal nares present Mouth: Yes moist mucous membranes Eyes: General: appearance normal, both eyes and all related structures Neck: Neck: supple and no JVD Resp: Effort & Inspection: normal respiratory effort Auscultation: clear to auscultation bilaterally Cardio: Rate: regular rate Rhythm: regular rhythm GI: GI Palp: Yes Soft to palpation Auscultation: normal bowel sounds Skin: General skin exam: normal color and no rashes or lesions noted Neuro: Other: patient has intellectual handicap from the cerebral palsy has dysarthria and dysphonia however alert and oriented follows commands and moves in therapy quite well the generalized weakness is improving Extrem: General: normal to inspection Objective Data Vital Signs Vital Signs: Vital Signs - 24 hr 06/17/19 14:00 06/17/19 22:00 06/18/19 06:00 Temperature 36.4 C 36.9 C 36.4 C Pulse Rate 80 82 78 Respiratory Rate 20 20 20 Blood Pressure 121/61 130/68 137/72 Pulse Oximetry 100 98 100 06/18/19 08:49 Temperature Pulse Rate 78 Respiratory Rate Blood Pressure Pulse Oximetry Intake/Output Intake/Output: Intake & Output 06/15/19 06/16/19 06/17/19 06/18/19 23:59 23:59 23:59 23:59 Intake Total 960 600 960 240 Balance 960 600 960 240 Meds/Results Medications: Active Medications Generic Name Dose Route Start Last Admin Trade Name Freq PRN Reason Stop Dose Admin Acetaminophen 500 mg 06/13/19 19:00 Tylenol Tablet PO Q4H PRN Mild Pain (1-3) Or Fever Hydrocodone Bitart/Acetaminophen 1 tab 06/13/19 19:00 06/18/19 10:48 Lane 5-325 Mg PO 1 tab Q6H PRN Administration Pain Rated 4-6 Allopurinol 300 mg 06/14/19 09:00 06/18/19 08:49 Zyloprim PO 300 mg DAILY BOBO Administration Dextrose 12.5 gm 06/13/19 21:25 Dextrose 50% Syringe IV PUSH PRN PRN Hypoglycemia Protocol Diphenoxylate HCl/Atropine 1 tablet 06/14/19 15:58 Lomotil Tab 2.5 Mg PO Q4H PRN Diarrhea Glucagon 1 mg 06/13/19 21:25 Glucagon For Inj IM PRN PRN Hypoglycemia Protocol Glucose 15 gm 06/13/19 21:25 Glutose 15 PO PRN PRN Hypoglycemia Protocol Dextrose 1,000 mls @ 100 mls/hr 06/13/19 21:25 Dextrose 5% 1,000 Ml IVPB PRN PRN Hypoglycemi
[2019-06-18 12:14] LABS: Glucose Point of Care 241 (65-105)
[2019-06-18 14:00] VITALS: BP 125/65; PULSE 80; RESP 20; TEMP 36.4; O2SAT 100
[2019-06-18] MEDS: ACETAMINOPHEN 500 MG TABLET PO (15:43)
[2019-06-18 16:52] LABS: Glucose Point of Care 243 (65-105)
[2019-06-18 22:00] VITALS: BP 137/78; PULSE 83; RESP 18; TEMP 36.4; O2SAT 98
[2019-06-18 22:34] LABS: Glucose Point of Care 257 (65-105)
[2019-06-19 06:00] VITALS: BP 124/63; PULSE 75; RESP 18; TEMP 36.8; O2SAT 99
[2019-06-19 07:14] LABS: Glucose Point of Care 200 (65-105)
[2019-06-19] MEDS: LEVOTHYROXINE SODIUM 75 MCG TABLET PO (09:30)
[2019-06-19] MEDS: LEVOTHYROXINE SODIUM 50 MCG TABLET 100 MCG PO (09:31)
[2019-06-19] MEDS: allopurinoL 300 MG TABLET PO (09:32)
[2019-06-19] MEDS: SIMVASTATIN 20 MG TABLET PO (09:32)
[2019-06-19] MEDS: metFORMIN HCL XR 500 MG TAB.SR.24H PO (09:32)
[2019-06-19] MEDS: PANTOPRAZOLE 40 MG TABLET PO (09:32)
[2019-06-19 09:33] VITALS: PULSE 92
[2019-06-19] MEDS: TRIAMTERENE 37.5 MG/HCTZ 25 MG (MAXZIDE) TABLET 2 TAB PO (09:33)
[2019-06-19] MEDS: METOPROLOL SUCCINATE EXT REL 100 MG TABCR 200 MG PO (09:33)
[2019-06-19 12:30] LABS: Glucose Point of Care 219 (65-105)
[2019-06-19] MEDS: INSULIN ASPART (*BKC) 100 UNITS/ML SUB-Q ×2 (12:59→18:04)
[2019-06-19 14:00] VITALS: BP 110/60; PULSE 76; RESP 18; TEMP 36.3; O2SAT 100
[2019-06-19 17:15] LABS: Glucose Point of Care 212 (65-105)
[2019-06-19 20:46] LABS: Glucose Point of Care 300 (65-105)
[2019-06-19 22:00] VITALS: BP 124/67; PULSE 78; RESP 17; TEMP 36.6; O2SAT 100
[2019-06-20 06:00] VITALS: BP 126/64; PULSE 84; RESP 17; TEMP 36.9; O2SAT 98
[2019-06-20 07:40] LABS: Glucose Point of Care 218 (65-105)
[2019-06-20] MEDS: LEVOTHYROXINE SODIUM 100 MCG TABLET PO (10:08)
[2019-06-20] MEDS: allopurinoL 300 MG TABLET PO (10:09)
[2019-06-20] MEDS: metFORMIN HCL XR 500 MG TAB.SR.24H PO (10:09)
[2019-06-20 10:10] VITALS: PULSE 56
[2019-06-20] MEDS: PANTOPRAZOLE 40 MG TABLET PO (10:10)
[2019-06-20] MEDS: SIMVASTATIN 20 MG TABLET PO (10:10)
[2019-06-20] MEDS: METOPROLOL SUCCINATE EXT REL 100 MG TABCR 200 MG PO (10:10)
[2019-06-20] MEDS: INSULIN ASPART (*BKC) 100 UNITS/ML SUB-Q ×3 (10:11→18:21)
[2019-06-20] MEDS: TRIAMTERENE 37.5 MG/HCTZ 25 MG (MAXZIDE) TABLET 2 TAB PO (10:11)
--- NOTE | 2019-06-20 11:17 | PCDIET ---
Nutrition Follow-Up Complete: Inadequate oral intake related to abdominal pain as evidenced by decreased appetite and statement of 30 pound weight loss. Pt will consume greater than 75% of all meals. Goal met. Pt has consumed 100% of her meals. Nutrition recommendation: Recommend continuation of DM CHO consistent diet to ensure pt's nutrient needs are met and that consistency of carbs is establish to better control blood glucose levels (POC Glu 218) Last recorded weight is 86 kg. Bowel Motility:Last recorded +BM 06/18 Labs Reviewed:POC Glu 218 Meds Noted:Metformin, Novolog, Triamterene/Hctz,protonix, Zocar Additional Notes: pt states that appetite is only ok however, it is recorded she has eaten 100% of all meals. Said she had cream of wheat, a muffin, and raisin brand cereal. Will continue to monitor intake, output, labs, and electrolytes. Will follow up in 3 days.
--- NOTE | 2019-06-20 12:15 | PCNSR ---
On 06/20/19, the student, Charlotte Andrews, provided care and completed [facility] documentation on this patient. I have reviewed the student's documentation and agree with the findings.
[2019-06-20] MEDS: LEVOTHYROXINE SODIUM 75 MCG TABLET PO (12:35)
[2019-06-20 12:44] LABS: Glucose Point of Care 352 (65-105)
[2019-06-20 14:00] VITALS: BP 124/69; PULSE 82; RESP 16; TEMP 36.5; O2SAT 100
--- NOTE | 2019-06-20 15:14 | WPDNEURORHBP ---
Subjective Date/time seen: 06/20/19 15:14 Interval history: this 53-year-old woman who has underlying cerebral palsy and was admitted to acute rehab because of debility weakness related to resolved acute renal failure doing fairly well engage in therapy and working with the PT and OT and quite happy with the work and the care she is receiving next She denies any headache nausea vomiting chest pain shortness of breath abdominal pain fever chills or sore throat Review of Systems Constitutional: Constitutional: Reports no additional constitutional complaints Eyes: Eyes: Reports no additional eye complaints ENT: Reports system reviewed and no additional complaints, except as documented Cardiovascular: Cardiovascular: Reports no additional cardiovascular complaints Respiratory: Respiratory: Reports no additional respiratory complaints Gastrointestinal: Gastrointestinal: Reports no additional gastrointestinal complaints Genitourinary: Genitourinary: Reports no additional female genitourinary complaints Musculoskeletal: Musculoskeletal: Reports no additional musculoskeletal complaints Integumentary/Breasts: Skin/Breast: Reports system reviewed and no additional complaints, except as docu Neurologic: Reports system reviewed and no additional complaints, except as documented Psychiatric: Psychiatric: Reports no additional psychiatric complaints Functional Status Ambulation Ability Ability to Ambulate 10 Feet: Standby Assistance Ability to Ambulate 50 Feet With 2 Turns: Standby Assistance Ability to Ambulate 150 Feet: Contact Guard Ambulation Assistive Devices: Walker, Wheeled Exam Const: General: comfortable and no acute distress HENMT: General nose exam: Normal nares present Mouth: Yes moist mucous membranes Eyes: General: appearance normal, both eyes and all related structures Neck: Neck: supple and no JVD Resp: Effort & Inspection: normal respiratory effort Auscultation: clear to auscultation bilaterally Cardio: Rate: regular rate Rhythm: regular rhythm GI: GI Palp: Yes Soft to palpation Auscultation: normal bowel sounds Skin: General skin exam: normal color and no rashes or lesions noted Neuro: Other: the intellectual handicap related to cerebral palsy is stable her dysphonia and mild dysarthria remains also stable the generalized weakness is improving she is engage in therapy quite well and very happy with the care she is receiving Extrem: General: normal to inspection Objective Data Vital Signs Vital Signs: Vital Signs - 24 hr 06/19/19 22:00 06/20/19 06:00 06/20/19 10:10 Temperature 36.6 C 36.9 C Pulse Rate 78 84 56 L Respiratory Rate 17 17 Blood Pressure 124/67 126/64 Pulse Oximetry 100 98 Intake/Output Intake/Output: Intake & Output 06/17/19 06/18/19 06/19/19 06/20/19 23:59 23:59 23:59 23:59 Intake Total 960 443 622 3353 Balance 960 213 357 5247 Meds/Results Medications: Active Medications Generic Name Dose Route Start Last Admin Trade Name Freq PRN Reason Stop Dose Admin Acetaminophen 500 mg 06/13/19 19:00 06/18/19 15:43 Tylenol Tablet PO 500 mg Q4H PRN Administration Mild Pain (1-3) Or Fever Hydrocodone Bitart/Acetaminophen 1 tab 06/13/19 19:00 06/20/19 10:16 [place] 5-325 Mg PO 1 tab Q6H PRN Administration Pain Rated 4-6 Allopurinol 300 mg 06/14/19 09:00 06/20/19 10:09 Zyloprim PO 300 mg DAILY BOBO Administration Dextrose 12.5 gm 06/13/19 21:25 Dextrose 50% Syringe IV PUSH PRN PRN Hypoglycemia Protocol Diphenoxylate HCl/Atropine 1 tablet 06/14/19 15:58 06/20/19 10:15 Lomotil Tab 2.5 Mg PO 1 tablet Q4H PRN Administration Diarrhea Glipizide 2.5 mg 06/21/19 06:30 Glucotrol PO DAILY@0630 BOBO Glucagon 1 mg 06/13/19 21:25 Glucagon For Inj IM PRN PRN Hypoglycemia Protocol Glucose 15 gm 06/13/19 21:25 Glutose 15 PO PRN PRN Hypoglycemia
[2019-06-20 17:47] LABS: Glucose Point of Care 234 (65-105)
[2019-06-20 21:51] LABS: Glucose Point of Care 257 (65-105)
[2019-06-20 22:00] VITALS: BP 115/63; PULSE 68; RESP 20; TEMP 36.9; O2SAT 99
[2019-06-21 05:28] LABS: Blood Urea Nitrogen 22 mg/dL (7-17); Calcium 8.4 mg/dL (8.4-10.2); Carbon Dioxide 23 mmol/L (22-30); Chloride 97 mmol/L (98-107); Estimated CRCL calculation 33 ml/min; Estimated Glomerular Filt Rate 29; Glucose 210 mg/dL (65-105); Potassium 3.3 mmol/L (3.4-5.0); Sodium 132 mmol/L (137-145)
[2019-06-21 06:00] VITALS: BP 122/84; PULSE 88; RESP 20; TEMP 36.8; O2SAT 98
[2019-06-21] MEDS: glipiZIDE 2.5 MG TABLET PO (06:20)
[2019-06-21] MEDS: LEVOTHYROXINE SODIUM 75 MCG TABLET PO (06:20)
[2019-06-21] MEDS: LEVOTHYROXINE SODIUM 100 MCG TABLET PO (06:20)
[2019-06-21 07:06] LABS: Glucose Point of Care 215 (65-105)
[2019-06-21] MEDS: INSULIN ASPART (*BKC) 100 UNITS/ML SUB-Q ×3 (08:06→17:31)
[2019-06-21] MEDS: PANTOPRAZOLE 40 MG TABLET PO (08:18)
[2019-06-21] MEDS: allopurinoL 300 MG TABLET PO (08:18)
[2019-06-21] MEDS: SIMVASTATIN 20 MG TABLET PO (08:18)
[2019-06-21] MEDS: METOPROLOL SUCCINATE EXT REL 100 MG TABCR 200 MG PO (08:18)
[2019-06-21] MEDS: TRIAMTERENE 37.5 MG/HCTZ 25 MG (MAXZIDE) TABLET 2 TAB PO (08:18)
[2019-06-21 08:53] LABS: Basophils Percent Auto 0.7 % (0.2-1.2); Eosinophils Absolute Auto 0.3 K/mm3 (0-0.3); Eosinophils Percent Auto 5.3 % (0-4.4); Hematocrit 28.6 % (37.0-47.0); Hemoglobin 9.4 g/dL (12.0-15.0); Immature Granulocyte Absolute 0.04 K/mm3 (0.00-0.031); Immature Granulocyte Percent A 0.7 % (0-0.5); Lymphocytes Absolute Auto 0.91 K/mm3 (0.9-3.2); Lymphocytes Percent Auto 16.1 % (18.3-44.2); Mean Corpuscular HGB Conc 32.9 g/dl (32-36); Mean Corpuscular Hemoglobin 27.2 pg (26-34); Mean Corpuscular Volume 82.9 fl (80-100); Mean Platelet Volume 11.1 fl (7.4-10.4); Monocytes Absolute Auto 0.6 K/mm3 (0.1-0.6); Monocytes Percent Auto 10.1 % (2.6-8.5); Neutrophils Absolute Auto 3.8 K/mm3 (1.3-6.7); Neutrophils Percent Auto 67.1 % (45.5-73.1); Platelet Count Result 240 k/mm3 (150-375); Red Blood Count 3.45 M/mm3 (4.2-5.4); Red Cell Distribution Width 14.6 % (11.5-14.5); White Blood Count 5.7 K/mm3 (4.5-10.0)
[2019-06-21] MEDS: POTASSIUM CHLORIDE 10 MEQ TABLET.ER PO ×2 (10:20→16:57)
[2019-06-21 12:20] LABS: Glucose Point of Care 369 (65-105)
[2019-06-21 14:00] VITALS: BP 102/52; PULSE 80; RESP 18; TEMP 36.2; O2SAT 100
[2019-06-21 17:21] LABS: Glucose Point of Care 281 (65-105)
[2019-06-21 21:26] LABS: Glucose Point of Care 370 (65-105)
[2019-06-21 22:00] VITALS: BP 122/55; PULSE 79; RESP 18; TEMP 37.5; O2SAT 100
[2019-06-22] VITALS (7 sets, daily range): BP systolic 115–122; BP diastolic 57–64; PULSE 72–78; RESP 18; TEMP 36.4–37.1; O2SAT 98–100
[2019-06-22] MEDS: glipiZIDE 2.5 MG TABLET PO (06:08)
[2019-06-22] MEDS: LEVOTHYROXINE SODIUM 100 MCG TABLET PO (06:08)
[2019-06-22] MEDS: LEVOTHYROXINE SODIUM 75 MCG TABLET PO (06:08)
[2019-06-22 06:40] LABS: Glucose Point of Care 319 (65-105)
[2019-06-22] MEDS: PANTOPRAZOLE 40 MG TABLET PO (08:57)
[2019-06-22] MEDS: METOPROLOL SUCCINATE EXT REL 100 MG TABCR 200 MG PO (08:57)
[2019-06-22] MEDS: SIMVASTATIN 20 MG TABLET PO (08:57)
[2019-06-22] MEDS: allopurinoL 300 MG TABLET PO (08:57)
[2019-06-22] MEDS: TRIAMTERENE 37.5 MG/HCTZ 25 MG (MAXZIDE) TABLET 2 TAB PO (08:57)
[2019-06-22] MEDS: POTASSIUM CHLORIDE 10 MEQ TABLET.ER PO ×2 (08:57→17:59)
[2019-06-22] MEDS: INSULIN ASPART (*BKC) 100 UNITS/ML SUB-Q ×2 (09:00→17:59)
[2019-06-22 11:52] LABS: Glucose Point of Care 166 (65-105)
--- NOTE | 2019-06-22 12:00 | WPDNEURORHBP ---
Subjective Date/time seen: June 21 at 12 noon Interval history: this 53-year-old with longstanding several palsy with intellectually challenged patient but able to engage in decent conversation is here after having had acute renal failure and generalized debility and the weakness along with a history of malignancy of gynecology [place] nature we will described in my initial history and physical examination with urinary incontinence and bowel incontinence and chronic abdominal pain which has not been a major issue where in the rehab Patient denies any fever chills sore throat nausea vomiting abdominal pain apart from what she already has fever chills or sore throat Review of Systems Constitutional: Constitutional: Reports no additional constitutional complaints Eyes: Eyes: Reports no additional eye complaints ENT: Reports system reviewed and no additional complaints, except as documented Cardiovascular: Cardiovascular: Reports no additional cardiovascular complaints Respiratory: Respiratory: Reports no additional respiratory complaints Gastrointestinal: Gastrointestinal: Reports no additional gastrointestinal complaints Genitourinary: Genitourinary: Reports no additional female genitourinary complaints Musculoskeletal: Musculoskeletal: Reports no additional musculoskeletal complaints Integumentary/Breasts: Skin/Breast: Reports system reviewed and no additional complaints, except as docu Neurologic: Reports system reviewed and no additional complaints, except as documented Psychiatric: Psychiatric: Reports no additional psychiatric complaints Functional Status Ambulation Ability Ability to Ambulate 10 Feet: Standby Assistance Ability to Ambulate 50 Feet With 2 Turns: Standby Assistance Ability to Ambulate 150 Feet: Standby Assistance Ambulation Assistive Devices: Walker, Wheeled Exam Const: General: comfortable and no acute distress HENMT: General nose exam: Normal nares present Mouth: Yes moist mucous membranes Eyes: General: appearance normal, both eyes and all related structures Neck: Neck: supple and no JVD Resp: Effort & Inspection: normal respiratory effort Auscultation: clear to auscultation bilaterally Cardio: Rate: regular rate Rhythm: regular rhythm GI: GI Palp: Yes Soft to palpation Auscultation: normal bowel sounds Skin: General skin exam: normal color and no rashes or lesions noted Neuro: Other: her cerebral palsy is stable at his baseline she is able to follow commands quite well and has relatively fluent speech of course it is the reminiscent of people who have cerebral palsy have mild dysphonia and dysarthria her generalized weakness has been improving and she is doing fairly well Extrem: General: normal to inspection Objective Data Vital Signs Vital Signs: Vital Signs - 24 hr 06/21/19 14:00 06/21/19 22:00 06/22/19 06:00 Temperature 36.2 C L 37.5 C 37.1 C Pulse Rate 80 79 72 Respiratory Rate 18 18 18 Blood Pressure 102/52 L 122/55 L 118/64 Pulse Oximetry 100 100 100 06/22/19 08:57 06/22/19 12:31 Temperature 37.1 C Pulse Rate 72 Respiratory Rate Blood Pressure Pulse Oximetry Intake/Output Intake/Output: Intake & Output 06/19/19 06/20/19 06/21/19 06/22/19 23:59 23:59 23:59 23:59 Intake Total 840 1480 720 480 Balance 840 1480 720 480 Meds/Results Medications: Active Medications Generic Name Dose Route Start Last Admin Trade Name Freq PRN Reason Stop Dose Admin Acetaminophen 500 mg 06/13/19 19:00 06/18/19 15:43 Tylenol Tablet PO 500 mg Q4H PRN Administration Mild Pain (1-3) Or Fever Hydrocodone Bitart/Acetaminophen 1 tab 06/13/19 19:00 06/22/19 09:04 [place] 5-325 Mg PO 1 tab Q6H PRN Administration Pain Rated 4-6 Allopurinol 300 mg 06/14/19 09:00 06/22/19 08:57 Zyloprim PO 300 mg DAILY BOBO Administration Dextrose 12.5 gm 06/13/19 21:25 Dextrose 50% Syringe IV PUSH PRN PRN Hypoglycemia
[2019-06-22] MEDS: LOPERAMIDE HCL 2 MG CAPSULE PO (13:27)
[2019-06-22] MEDS: ACETAMINOPHEN 500 MG TABLET PO (13:27)
--- NOTE | 2019-06-22 14:39 | WPDNEURORHBP ---
Subjective Date/time seen: 06/22/19 14:39 Interval history: this 53-year-old 0 white woman with a longstanding history of cerebral palsy with quadriparesis where the lower extremities are much more involved than the upper extremity and has a baseline quadriparetic gait with the October 06 this deformity but able to walk with the assistance quite well and has improved she primarily came in after having had an acute renal failure debility and weakness which is improving she does not have any new specific complaints Review of Systems Constitutional: Constitutional: Reports no additional constitutional complaints Eyes: Eyes: Reports no additional eye complaints ENT: Reports system reviewed and no additional complaints, except as documented Cardiovascular: Cardiovascular: Reports no additional cardiovascular complaints Respiratory: Respiratory: Reports no additional respiratory complaints Gastrointestinal: Gastrointestinal: Reports no additional gastrointestinal complaints Genitourinary: Genitourinary: Reports no additional female genitourinary complaints Musculoskeletal: Musculoskeletal: Reports no additional musculoskeletal complaints Integumentary/Breasts: Skin/Breast: Reports system reviewed and no additional complaints, except as docu Neurologic: Reports system reviewed and no additional complaints, except as documented Psychiatric: Psychiatric: Reports no additional psychiatric complaints Functional Status Ambulation Ability Ability to Ambulate 10 Feet: Standby Assistance Ability to Ambulate 50 Feet With 2 Turns: Standby Assistance Ability to Ambulate 150 Feet: Standby Assistance Ambulation Assistive Devices: Walker, Wheeled Exam Const: General: no acute distress and uncomfortable HENMT: General nose exam: Normal nares present Mouth: Yes moist mucous membranes Eyes: General: appearance normal, both eyes and all related structures Neck: Neck: supple and no JVD Resp: Effort & Inspection: normal respiratory effort Auscultation: clear to auscultation bilaterally Cardio: Rate: regular rate Rhythm: regular rhythm GI: GI Palp: Yes Soft to palpation Auscultation: normal bowel sounds Skin: General skin exam: normal color and no rashes or lesions noted Neuro: Other: patient is awake and alert follows L commands quite well she is mentally and intellectually challenged but doing very well and engage in therapy the evidence of cerebral palsy with a dysphonia and dysarthric speech and quadriparesis is quite evident and she is getting back to her baseline Extrem: General: normal to inspection Other: she has longstanding quadriparesis NG new well guess deformity of both legs Objective Data Vital Signs Vital Signs: Vital Signs - 24 hr 06/21/19 22:00 06/22/19 06:00 06/22/19 08:00 Temperature 37.5 C 37.1 C Pulse Rate 79 72 72 Respiratory Rate 18 18 18 Blood Pressure 122/55 L 118/64 Pulse Oximetry 100 100 100 06/22/19 08:57 06/22/19 12:31 Temperature 37.1 C Pulse Rate 72 Respiratory Rate Blood Pressure Pulse Oximetry Intake/Output Intake/Output: Intake & Output 06/19/19 06/20/19 06/21/19 06/22/19 23:59 23:59 23:59 23:59 Intake Total 840 1480 720 720 Balance 840 1480 720 720 Meds/Results Medications: Active Medications Generic Name Dose Route Start Last Admin Trade Name Freq PRN Reason Stop Dose Admin Acetaminophen 500 mg 06/13/19 19:00 06/22/19 13:27 Tylenol Tablet PO 500 mg Q4H PRN Administration Mild Pain (1-3) Or Fever Hydrocodone Bitart/Acetaminophen 1 tab 06/13/19 19:00 06/22/19 09:04 [place] 5-325 Mg PO 1 tab Q6H PRN Administration Pain Rated 4-6 Allopurinol 300 mg 06/14/19 09:00 06/22/19 08:57 Zyloprim PO 300 mg DAILY BOBO Administration Dextrose 12.5 gm 06/13/19 21:25 Dextrose 50% Syringe IV PUSH PRN PRN Hypoglycemia Protocol Diphenoxylate HCl/Atropine 1 tablet 06/14/19 15:58 06/21/19 11:15 [facility]
[2019-06-22 17:34] LABS: Glucose Point of Care 222 (65-105)
[2019-06-22 21:18] LABS: Glucose Point of Care 236 (65-105)
[2019-06-23] MEDS: glipiZIDE 2.5 MG TABLET PO (05:33)
[2019-06-23] MEDS: LEVOTHYROXINE SODIUM 100 MCG TABLET PO (05:33)
[2019-06-23] MEDS: LEVOTHYROXINE SODIUM 75 MCG TABLET PO (05:33)
[2019-06-23 06:00] VITALS: BP 141/84; PULSE 83; RESP 19; TEMP 36.2; O2SAT 99
[2019-06-23 06:21] LABS: Glucose Point of Care 178 (65-105)
[2019-06-23] MEDS: allopurinoL 300 MG TABLET PO (09:05)
[2019-06-23] MEDS: METOPROLOL SUCCINATE EXT REL 100 MG TABCR 200 MG PO (09:05)
[2019-06-23] MEDS: POTASSIUM CHLORIDE 10 MEQ TABLET.ER PO ×2 (09:05→17:16)
[2019-06-23] MEDS: PANTOPRAZOLE 40 MG TABLET PO (09:06)
[2019-06-23] MEDS: TRIAMTERENE 37.5 MG/HCTZ 25 MG (MAXZIDE) TABLET 2 TAB PO (09:06)
[2019-06-23] MEDS: SIMVASTATIN 20 MG TABLET PO (09:06)
--- NOTE | 2019-06-23 09:11 | PCPTNOTE ---
Stephanie De La Garza was evaluated for a wheeled walker on 06/23/2019 by this physical therapist. The wheeled walker will resolve patient's mobility limitations and will be used for ADL's within the home. The patient can safely use the wheeled walker. ?The wheeled waker will resolve the patient?s mobility deficits, including all mobility in her home and on outings. Kerrie Faulkner PT
[2019-06-23 11:50] LABS: Glucose Point of Care 208 (65-105)
[2019-06-23] MEDS: INSULIN ASPART (*BKC) 100 UNITS/ML SUB-Q (12:14)
--- NOTE | 2019-06-23 13:11 | PCDIET ---
Nutrition Follow-Up Complete: Inadequate oral intake related to abdominal pain as evidenced by decreased appetite and statement of 30 pound weight loss. Pt will consume greater than 75% of all meals. Goal met. Pt is consuming 100% of all meals Nutrition recommendation: Recommend continuation of DM CHO consistent diet. Recommend lab tests be conducted to assess electrolyte status due to frequent urination/chronic diarrhea. If medically appropriate, recommend provision of Banatrol TID to assist with diarrhea. Last recorded weight is 86 kg. Bowel Motility: +BM 06/22 (twice) and pt reported +BM today Labs Reviewed:POC Capillary glucose 208 Meds Noted:Zocar, metformin, protonix, norco, triamterene Additional Notes: pt complains of stomach pain, which is constant and normal. No changes to amount of pain. Said she was not very hungry this morning but was still able to eat breakfast. Will monitor intake, labs, and electrolytes. Will follow up in 3 days.
--- NOTE | 2019-06-23 13:58 | PCNSR ---
On 06/23/19, the student, Charlotte Andrews, provided care and completed [facility] documentation on this patient. I have reviewed the student's documentation and agree with the findings.
[2019-06-23 14:00] VITALS: BP 120/46; PULSE 77; RESP 19; TEMP 36.5; O2SAT 100
[2019-06-23] MEDS: ACETAMINOPHEN 500 MG TABLET PO (14:13)
[2019-06-23 14:45] VITALS: BMI 33.5
[2019-06-23 16:57] LABS: Glucose Point of Care 197 (65-105)
[2019-06-23 20:45] LABS: Glucose Point of Care 356 (65-105)
[2019-06-23 22:00] VITALS: BP 106/50; PULSE 78; RESP 18; TEMP 36.4; O2SAT 100
[2019-06-24 06:00] VITALS: BP 134/49; PULSE 80; RESP 18; TEMP 36.3; O2SAT 98
[2019-06-24] MEDS: LEVOTHYROXINE SODIUM 75 MCG TABLET PO (06:08)
[2019-06-24] MEDS: LEVOTHYROXINE SODIUM 100 MCG TABLET PO (06:08)
[2019-06-24] MEDS: glipiZIDE 2.5 MG TABLET PO (06:08)
[2019-06-24 06:56] LABS: Glucose Point of Care 251 (65-105)
[2019-06-24 08:00] VITALS: PULSE 80; RESP 18; O2SAT 98
[2019-06-24] MEDS: INSULIN ASPART (*BKC) 100 UNITS/ML SUB-Q (08:27)
[2019-06-24] MEDS: POTASSIUM CHLORIDE 10 MEQ TABLET.ER PO (08:29)
[2019-06-24 08:30] VITALS: PULSE 80
[2019-06-24] MEDS: METOPROLOL SUCCINATE EXT REL 100 MG TABCR 200 MG PO (08:30)
[2019-06-24] MEDS: allopurinoL 300 MG TABLET PO (08:30)
[2019-06-24] MEDS: PANTOPRAZOLE 40 MG TABLET PO (08:30)
[2019-06-24] MEDS: SIMVASTATIN 20 MG TABLET PO (08:31)
[2019-06-24] MEDS: TRIAMTERENE 37.5 MG/HCTZ 25 MG (MAXZIDE) TABLET 2 TAB PO (08:31)
[2019-06-24 12:43] LABS: Glucose Point of Care 195 (65-105)
--- NOTE | 2019-06-24 14:30 | WPDNEURORHBP ---
Subjective Date/time seen: 06/24/19 14:30 Interval history: this 53-year-old the diabetic woman who came to us because of acute renal failure followed by debility the weakness is going to be discharged today medications have been reconciled the patient will be going back to her home situation as before with the help which has been saving in the past Review of Systems Constitutional: Constitutional: Reports no additional constitutional complaints Eyes: Eyes: Reports no additional eye complaints ENT: Reports system reviewed and no additional complaints, except as documented Cardiovascular: Cardiovascular: Reports no additional cardiovascular complaints Respiratory: Respiratory: Reports no additional respiratory complaints Gastrointestinal: Gastrointestinal: Reports no additional gastrointestinal complaints Genitourinary: Genitourinary: Reports no additional female genitourinary complaints Musculoskeletal: Musculoskeletal: Reports no additional musculoskeletal complaints Integumentary/Breasts: Skin/Breast: Reports system reviewed and no additional complaints, except as docu Neurologic: Reports system reviewed and no additional complaints, except as documented Psychiatric: Psychiatric: Reports no additional psychiatric complaints Functional Status Ambulation Ability Ability to Ambulate 10 Feet: Standby Assistance Ability to Ambulate 50 Feet With 2 Turns: Standby Assistance Ability to Ambulate 150 Feet: Standby Assistance Ambulation Assistive Devices: Walker, Wheeled Exam Const: General: comfortable and no acute distress HENMT: General nose exam: Normal nares present Mouth: Yes moist mucous membranes Eyes: General: appearance normal, both eyes and all related structures Neck: Neck: supple and no JVD Resp: Auscultation: clear to auscultation bilaterally Cardio: Rate: regular rate Rhythm: regular rhythm GI: GI Palp: Yes Soft to palpation Auscultation: normal bowel sounds Skin: General skin exam: normal color and no rashes or lesions noted Neuro: Other: patient is back to her baseline neurological state with quadriparesis however able to walk with a walker fairly decently and probably much better than what she did before as she has been mostly sedentary at home no neurological new findings are noted Objective Data Vital Signs Vital Signs: Vital Signs - 24 hr 06/23/19 22:00 06/24/19 06:00 06/24/19 08:00 Temperature 36.4 C L 36.3 C L Pulse Rate 78 80 80 Respiratory Rate 18 18 18 Blood Pressure 106/50 L 134/49 L Pulse Oximetry 100 98 98 06/24/19 08:30 Temperature Pulse Rate 80 Respiratory Rate Blood Pressure Pulse Oximetry Intake/Output Intake/Output: Intake & Output 06/21/19 06/22/19 06/23/19 06/24/19 23:59 23:59 23:59 23:59 Intake Total 081 206 4068 480 Balance 644 148 1122 480 Meds/Results Medications: Active Medications Generic Name Dose Route Start Last Admin Trade Name Freq PRN Reason Stop Dose Admin Acetaminophen 500 mg 06/13/19 19:00 06/23/19 14:13 Tylenol Tablet PO 500 mg Q4H PRN Administration Mild Pain (1-3) Or Fever Hydrocodone Bitart/Acetaminophen 1 tab 06/13/19 19:00 06/24/19 08:26 [place] 5-325 Mg PO 1 tab Q6H PRN Administration Pain Rated 4-6 Allopurinol 300 mg 06/14/19 09:00 06/24/19 08:30 Zyloprim PO 300 mg DAILY BOBO Administration Dextrose 12.5 gm 06/13/19 21:25 Dextrose 50% Syringe IV PUSH PRN PRN Hypoglycemia Protocol Diphenoxylate HCl/Atropine 1 tablet 06/14/19 15:58 06/21/19 11:15 Lomotil Tab 2.5 Mg PO 1 tablet Q4H PRN Administration Diarrhea Glipizide 2.5 mg 06/21/19 06:30 06/24/19 06:08 Glucotrol PO 2.5 mg DAILY@0630 BOBO Administration Glucagon 1 mg 06/13/19 21:25 Glucagon For Inj IM PRN PRN Hypoglycemia Protocol Glucose 15 gm 06/13/19 21:25 Glutose 15 PO PRN PRN Hypoglycemia Protocol Dextrose 1,000 ml
--- NOTE | 2019-06-26 23:12 | DS_ITS ---
DATE OF DISCHARGE: 06/24/2019 DISCHARGE ACUTE REHABILITATION DIAGNOSES: Twenty/miscellaneous debility with etiological diagnosis of acute renal failure. DISCHARGE ACUTE COMORBID CONDITIONS: 1. Diabetes mellitus type 2. 2. Cerebral palsy. 3. GERD. 4. Gout. 5. Hypertension. 6. Hyperlipidemia. 7. Lymphedema of the lower extremities of moderately severe degree. 8. Renal failure. REASON FOR ADMISSION: A 53-years old right-handed female, presented to [facility], primary care physician, Dr. Buckley with chronic unmanageable lower extremity, lower abdominal pain with prior medical history of multiple diagnoses as mentioned above. In addition to the endometrial cancer in 2015, which was treated with radiation and resulted in the incontinence of bowel and bladder. She was started on Zosyn for broad spectrum coverage on the presumption of UTI, but they were unable to collect the urine. She was found to have sodium 129, potassium 3.1, creatinine 1.6 with a glucose of 620, and TSH of 7. CT of the abdomen demonstrated a 2 x 1.8 x 5.1 cm gas and fluid collection within the vaginal wall and cervical area with the prior history of radiation treatment. She also had the decreased attenuation of the anterior wall of the cervical cuff, which raised the concern for some possible vaginal fistula, though MRI turned out to be negative. On June 11, she underwent cystoscopic examination, but it was only attempted and unsuccessful. There was no urethral meatus through the scope. Necrotic friable tissue was noted, raised the possibility of necrotic entire vaginal wall and biopsy confirmed the predominantly necrotic tissue; bilateral nephrostomy tube was consider, but the patient's creatinine level started improving, so no intervention was done. She was advised to be followed by Dr. Cope at [facility] as soon as possible following the rehab treatment. She was started on glyburide for hyperglycemia throughout the hospital stay and she was transferred to rehab for the gait dysfunction, imbalance, and safety consideration. LEVEL OF FUNCTION AT THE TIME OF ADMISSION: The patient required the setup for eating. She was independent for oral hygiene, dependent for toileting, partial assistance for bathing, setup for upper body dressing. She was dependent for lower body dressing, footwear, required supervision for rolling in bed, sitting and lying, lying to sitting, partial assistance for sit to stand, chair transfer, substantial assistance for toilet transfer, partial assistance for car transfer, 10 feet walking, 50 feet walking with 2 turns was unable. She was unable to walk 150 feet. She required partial assistance for walking 10 feet on uneven surfaces, curb or step, 4 steps, 12 steps, picking up object and the wheelchair was not applicable. ANTICIPATED REHAB GOALS AT THE TIME OF ADMISSION: To bring her to the level of being independent for eating, oral hygiene, required only supervision for toileting, independent for the bathing, upper body dressing, supervision for lower body dressing and footwear, independent for rolling in bed, sit to lying, lying to sitting, sit to stand, supervision only for chair transfer, toilet transfer, car transfer, 10 feet walking, 50 feet walking with 2 turns, 150 feet walking, 10 feet walking on uneven surfaces, curb or step, 4 steps, 12 steps and picking up objects. Level of function at the time of discharge, the patient became independent eating and oral hygiene, required only supervision for toileting and bathing, partial assistance for upper body, lower body assist dressing and footwear. She became independent rolling in bed sit to lying, lying to sitting, sit to stand. She was supervision and she remained supervision for the chair transfer, toilet transfer, car transfer, 10 feet walking,
== END 2019-06-24 15:12 | disposition home health service (06) | DRG 948 ==
PROVIDERS: Admitting Provider Psychiatry & Neurology Neurology; PCP Family Medicine; Visit Provider Psychiatry & Neurology Neurology
DX: R53.81 Other malaise (principal); N13.30 Unspecified hydronephrosis; E78.5 Hyperlipidemia, unspecified; E11.65 Type 2 diabetes mellitus with hyperglycemia; F79 Unspecified intellectual disabilities; G89.29 Other chronic pain; G80.9 Cerebral palsy, unspecified; I10 Essential (primary) hypertension; I89.0 Lymphedema, not elsewhere classified; K21.9 Gastro-esophageal reflux disease without esophagitis; M10.9 Gout, unspecified; M62.81 Muscle weakness (generalized); M41.9 Scoliosis, unspecified; N39.498 Other specified urinary incontinence; R10.2 Pelvic and perineal pain; R19.7 Diarrhea, unspecified; R49.0 Dysphonia; R47.1 Dysarthria and anarthria; R33.9 Retention of urine, unspecified; R63.4 Abnormal weight loss; R15.9 Full incontinence of feces; Z79.84 Long term (current) use of oral hypoglycemic drugs; Z92.3 Personal history of irradiation; Z85.42 Personal history of malignant neoplasm of other parts of uterus
CPT/HCPCS: 36415; 80048; 85025; 92507; 92522; 92523; 97110; 97116; 97150; 97161; 97166; 97530; 97535; A9270; J1815

== ENCOUNTER 2019-10-17 20:41 | Emergency (ER) | payer MEDICARE, MEDICAID, SELFPAY ==
--- NOTE | ~2019-10-17 | XR_ITS ---
EXAMINATION: XR chest 1V portable DATE: 10/17/2019 21:11 INDICATION: Chest pain. TECHNIQUE: A single frontal view of the chest was obtained. COMPARISON: Chest 2 views 06/08/2018, CT abdomen and pelvis 06/09/2019, chest CT 12/09/2012 FINDINGS: A 2.7 cm ring-shaped density overlies the left upper lung zone, likely benign. No pleural e ffusion or pneumothorax. The heart size is normal. IMPRESSION: 1. New ring-shaped density overlying the left upper lung zone that may be in the chest wall, likely b enign. Reviewed, dictated and finalized at location A. IMPRESSION: 1. New ring-shaped density overlying the left upper lung zone that may be in th e chest wall, likely benign.
--- NOTE | ~2019-10-17 | CT_ITS ---
EXAMINATION: CT abdomen pelvis wo con DATE: 10/17/2019 22:33 INDICATION: Colovesical fistula. TECHNIQUE: Computed tomography (CT) of the abdomen and pelvis was performed without intravenous contr ast. Automated exposure control and iterative reconstruction technique were employed. The dose-length product was 437.53 mGy-cm. COMPARISON: CT abdomen and pelvis 06/09/2019, CT pelvis 10/24/2012 FINDINGS: The visualized portions of the lung bases demonstrate mild atelectasis. No pleural effusion . The heart size is normal. No pericardial effusion. The liver, gallbladder, spleen, pancreas, and ad renal glands are normal. There is severe bilateral hydronephrosis and hydroureter. There is mild atro phy of the kidneys. There is gas in the bladder lumen. 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 There is soft tissue thickening involving the bladder wall, vagina, a nd rectum, consistent with inflammation and changes of radiation therapy. There is a large volume of stool in the colon. The appendix is normal. There are no dilated loops of bowel. There are no patholo gically enlarged lymph nodes. There is no free intraperitoneal fluid. There is moderate thoracic spon dylosis and mild lumbar spondylosis. IMPRESSION: 1. 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 2. Severe bilateral hydronephrosis and hydroureter to the level of the pelvic inflammation and change s of radiation therapy. Reviewed, dictated and finalized at location A. IMPRESSION: 1. 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 2. Severe bilateral hydronephrosis and hydroureter to the level of the pelvic i nflammation and changes of radiation therapy.
[2019-10-17 20:39] VITALS: BP 144/64; PULSE 96; RESP 20; TEMP 36.7; O2SAT 97
[2019-10-17 21:02] LABS: Basophils Absolute Auto 0.1 K/mm3 (0.0-0.1); Basophils Percent Auto 0.4 % (0.2-1.2); Eosinophils Absolute Auto 0.3 K/mm3 (0-0.3); Eosinophils Percent Auto 1.5 % (0-4.4); Immature Granulocyte Absolute 0.25 K/mm3 (0.00-0.031); Immature Granulocyte Percent A 1.5 % (0-0.5); Lymphocytes Absolute Auto 0.98 K/mm3 (0.9-3.2); Lymphocytes Percent Auto 5.9 % (18.3-44.2); Mean Corpuscular HGB Conc 31.4 g/dl (32-36); Mean Corpuscular Hemoglobin 26.5 pg (26-34); Mean Corpuscular Volume 84.5 fl (80-100); Mean Platelet Volume 8.7 fl (7.4-10.4); Monocytes Absolute Auto 0.8 K/mm3 (0.1-0.6); Monocytes Percent Auto 4.9 % (2.6-8.5); Neutrophils Absolute Auto 14.3 K/mm3 (1.3-6.7); Neutrophils Percent Auto 85.8 % (45.5-73.1); Platelet Count Result 496 k/mm3 (150-375); Red Blood Count 2.45 M/mm3 (4.2-5.4); Red Cell Distribution Width 16.2 % (11.5-14.5); White Blood Count 16.6 K/mm3 (4.5-10.0)
--- NOTE | 2019-10-17 21:09 | PC.NURSE ---
Vivian Hernandez, wishes pt to be transfered to [facility]. EDP made aware.
--- NOTE | 2019-10-17 21:09 | ED.CHESTPAIN ---
HPI - Chest Pain General Chief Complaint: Chest Pain Stated Complaint: cp History of Present Illness HPI narrative: 53 yo female w/ h/o endometrial cancer, cerebral palsy, DM type II, HTN, lymphadema BIBEMS from home for multiple complaints. She reports not feeling well for about 2 months. She has had constipation and diarrhea intermittently for months. This is associated with lower abdominal pain. She also reports urinary incontinence. Tonight she developed chest pain as well, which she says is new. Related Data Home Medications Medication Instructions Recorded Confirmed blood sugar diagnostic #10 each 03/11/19 07/07/19 Allergies Allergy/AdvReac Type Severity Reaction Status Date / Time Cephalosporins Allergy Unknown ITCHING Verified 10/17/19 20:44 AND RASH CEFADROXIL HYDRATE Allergy Unknown ITCHING Uncoded 10/17/19 20:44 Review of Systems Review of Systems: All systems reviewed & are unremarkable except as noted in HPI and below Constitutional: Constitutional: Reports fatigue, Denies fever(s) and Reports weakness ENT: Denies sore throat Cardiovascular: Cardiovascular: Reports chest pain Respiratory: Respiratory: Reports dyspnea Gastrointestinal: Gastrointestinal: Reports abdominal pain, Reports constipation, Reports diarrhea and Reports nausea Genitourinary: Genitourinary: Reports urinary incontinence Neurologic: Reports weakness Endocrine: Endocrine: Denies polydipsia PMFSH Past Medical History Medical History Abnormal weight loss Cerebral palsy Diabetes mellitus Diarrhea Endometrial cancer Follows with [facility] Endometrial cancer Gastroesophageal reflux disease GERD without esophagitis Gout Hyperlipidemia Hyperlipidemia Hypertension Hypertension Lymphedema of left lower extremity Scoliosis Type 2 diabetes mellitus without complications Surgical History Surgical History H/O foot surgery Tendon lengthening to lower extremities History of hysterectomy Family History Family History Mother Family history of congestive heart failure Family history of kidney disease Patient's mother is Father COPD (chronic obstructive pulmonary disease) Heart disease Other Diabetes mellitus Family history of anemia Family history of arthritis Family history of blood dyscrasia Family history of cardiovascular disease Family history of chronic obstructive pulmonary disease Family history of malignant neoplasm Family history of mental disorder Hypertension Social History Social History Smoking status: Never smoker Second hand tobacco smoke exposure: No Alcohol intake: never Substance use: never Substance use type: does not use Gender identity (if verbalized by the patient): Female Spiritual care concerns: No Agree to blood products: Yes Exam Const: General: alert and ill appearing acutely and chronically Nutritional Appearance: well nourished Orientation/consciousness: patient oriented x3 HENMT: Head: normal to inspection Resp: Effort & Inspection: normal respiratory effort Auscultation: clear to auscultation bilaterally Cardio: Rate: regular rate Rhythm: regular rhythm GI: Auscultation: normal bowel sounds Rectal Exam: heme positive stool Other: suprapubic tenderness Urinary Catheter: Urinary Catheter: other (Draining what appears to be liquid feces) Skin: General skin exam: pallor Neuro: General: patient oriented x3, moves all extremities, no focal motor deficits and CN's II-XI intact bilaterally Cranial nerves: Yes Nystagmus present Speech: normal speech Extrem: General: edema bilateral Course Vital Signs Vital signs: Vital Signs Temperature 36.7 C 10/17/19 20:39 Pulse Rate 96
[2019-10-17 21:15] LABS: Alanine Aminotransferase 14 U/L (4-35); Albumin Level 3.3 g/dL (3.5-5.1); Alkaline Phosphatase 126 U/L (38-126); Aspartate Amino Transferase 20 U/L (14-36); Bilirubin,Total 0.2 mg/dL (0.2-1.3); Blood Urea Nitrogen 55 mg/dL (7-17); Calcium 8.8 mg/dL (8.4-10.2); Carbon Dioxide 15 mmol/L (22-30); Chloride 103 mmol/L (98-107); Estimated CRCL calculation 14 ml/min; Estimated Glomerular Filt Rate 11; Glucose 153 mg/dL (65-105); Lipase 31 U/L (23-300); Potassium 3.9 mmol/L (3.4-5.0); Sodium 131 mmol/L (137-145)
[2019-10-17 21:18] LABS: Hematocrit 20.7 % (37.0-47.0); Hemoglobin 6.5 g/dL (12.0-15.0)
[2019-10-17 21:24] LABS: NT Pro B Type Natriuretic Pept 822 PG/ML (5-100)
[2019-10-17 21:27] LABS: Troponin I < 0.012 ng/mL (0.000-0.034)
[2019-10-17 22:02] VITALS: BP 134/57; PULSE 90; RESP 20; O2SAT 97
[2019-10-17 22:06] LABS: Iron 20 ug/dL (37-170)
[2019-10-17 22:15] LABS: Percent Iron Saturation 11 % (20-50)
[2019-10-17 22:48] LABS: Add Urine Microscopic? YES; Appearance Urine Turbid (Clear); Bacteria Urine 4+ /hpf; Bilirubin Urine 2+ (Negative); Blood Urine 1+ (Negative); Color Urine Yellow (Yellow); Glucose Urine UA Negative (Negative); Ketones Urine Trace mg/dL (Negative); Leukocyte Esterase Ur 2+ LEU/UL (Negative); Mucus Urine Heavy /lpf; Nitrate Urine Negative (Negative); Protein Urine 3+ mg/dL (Negative); RBC Urine 51-75 /hpf (0-2); Specific Grav Ur 1.018 (1.001-1.035); Urobilinogen Urine Negative mg/dL (<2.0); WBC Clumps Urine Present /HPF; WBC Urine 31-50 /hpf
--- NOTE | 2019-10-17 23:00 | PC.NURSE ---
Report called to STEPHENIE Segura at [facility]. [phone]
[2019-10-17] MEDS: SODIUM CHLORIDE 0.9% IV 1,000 ML 999 ML IV CONT (23:02)
--- NOTE | 2019-10-17 23:08 | PC.NURSE ---
Addendum entered by Elena Hdez 10/18/19 00:11: Called [facility] for status...ETA [id number] Original Note: Called [facility] to transport to [facility]. ETA [id number]
[2019-10-17 23:10] LABS: Folic Acid 8.9 ng/mL (2.76->20)
--- NOTE | 2019-10-17 23:22 | PC.NURSE ---
assumed care of the patient at this time.
[2019-10-17 23:31] VITALS: BP 114/60; PULSE 83; RESP 18
[2019-10-17 23:32] VITALS: PULSE 82; RESP 20; O2SAT 98
[2019-10-17] MEDS: TUBING, BLOOD PLUM PUMP TUBING 1 EACH XX (23:38)
[2019-10-17] MEDS: SODIUM CHLORIDE 0.9% IV 250 ML 30 ML IV CONT (23:39)
[2019-10-17 23:45] VITALS: BP 125/57; PULSE 81; RESP 15; TEMP 36.9; O2SAT 97
[2019-10-17 23:53] VITALS: PULSE 77; RESP 16; O2SAT 100
[2019-10-18] VITALS: BP 108/54; PULSE 76; RESP 19; TEMP 36.9; O2SAT 100
--- NOTE | 2019-10-18 00:16 | PC.NURSE ---
Patient's sister calls to get update on patient's status. This nurse informs her that we are waiting for EMS to transfer the patient to [facility]
[2019-10-18 01:00] VITALS: BP 106/60; PULSE 81; RESP 20; TEMP 36.9; O2SAT 100
[2019-10-18] MEDS: SODIUM CHLORIDE 0.9% IV 1,000 ML 999 ML IV CONT (01:03)
--- NOTE | 2019-10-18 01:18 | PC.NURSE ---
[facility] here to transfer patient.
--- NOTE | 2019-10-18 01:29 | PC.NURSE ---
Patient transferred to [facility] via [facility] with blood products still infusing, NS still infusing and IV bolus still infusing via IV pump.
[2019-10-18 01:30] VITALS: BP 111/64; PULSE 82; RESP 20; TEMP 36.9; O2SAT 99
== END 2019-10-18 01:25 | disposition short-term general hospital (02) ==
PROVIDERS: Emergency Provider Emergency Medicine; PCP Family Medicine
DX: N17.9 Acute kidney failure, unspecified (principal); E11.9 Type 2 diabetes mellitus without complications; D64.9 Anemia, unspecified; N39.0 Urinary tract infection, site not specified; G80.9 Cerebral palsy, unspecified; C54.1 Malignant neoplasm of endometrium; K21.9 Gastro-esophageal reflux disease without esophagitis; E78.5 Hyperlipidemia, unspecified; I10 Essential (primary) hypertension; M10.9 Gout, unspecified; Z79.84 Long term (current) use of oral hypoglycemic drugs; N13.30 Unspecified hydronephrosis; R91.8 Other nonspecific abnormal finding of lung field; R06.00 Dyspnea, unspecified
CPT/HCPCS: 36415; 36430; 51701; 71045; 74176; 80053; 81001; 82607; 82728; 82746; 83540; 83550; 83690; 83880; 84484; 85025; 86850; 86900; 86901; 86920; 87086; 87088; 96361; 96365; 99285; J2543; J7030; J7050; P9016